=== PATIENT | female | born 1960 | race Caucasian/White ===

== ENCOUNTER 2018-06-27 03:24 | Inpatient (IN) | payer BC ==
[2018-06-27] MEDS ORDERED: KETOROLAC 30 MG/ML 1 ML VIAL IVP STA (03:47)
[2018-06-27] MEDS ORDERED: ONDANSETRON 4 MG/2 ML VIAL IVP STA (03:47)
[2018-06-27] MEDS ORDERED: PANTOPRAZOLE 40 MG/10 ML VIAL IVP STA (03:47)
[2018-06-27] MEDS ORDERED: SODIUM CHLORIDE 0.9% 1,000 ML IV STA ×2 (03:47)
[2018-06-27 03:58] LABS: Basophils % (A) 0 %; Eosinophils # (A) 0.1 k/uL (0-0.7); Eosinophils % (A) 1 %; HCT 43.3 % (34.0-46.0); HGB 14.1 gm/dL (11.4-16.0); Lymphocytes % (A) 14 %; MCH 30.5 pg (25.0-35.0); MCHC 32.5 g/dL (31.0-37.0); MCV 93.8 fL (80.0-100.0); Mean Platelet Volume 9.5; Monocytes # (A) 0.4 k/uL (0-1.0); Monocytes % (A) 5 %; Neutrophils # (A) 5.8 k/uL (1.3-7.7); Neutrophils % (A) 79 %; Platelet Count 173 k/uL (150-450); RBC 4.62 m/uL (3.80-5.40); RDW 13.3 % (11.5-15.5); WBC 7.4 k/uL (3.8-10.6)
[2018-06-27 04:08] LABS: Partial Thromboplastin Time 23.2 sec (22.0-30.0); Prothrombin Time 10.3 sec (9.0-12.0)
[2018-06-27 04:10] LABS: ALT 497 U/L (9-52); AST 575 U/L (14-36); Albumin 4.2 g/dL (3.5-5.0); Alkaline Phosphatase 168 U/L (38-126); Anion Gap 6 mmol/L; Blood Urea Nitrogen 17 mg/dL (7-17); Calcium 9.6 mg/dL (8.4-10.2); Carbon Dioxide 30 mmol/L (22-30); Chloride 106 mmol/L (98-107); Glucose 127 mg/dL (74-99); Potassium 4.8 mmol/L (3.5-5.1); Sodium 142 mmol/L (137-145); Total Bilirubin 1.7 mg/dL (0.2-1.3); Total Protein 7.6 g/dL (6.3-8.2)
[2018-06-27 04:38] LABS: Amylase 2306 U/L (30-110); Lipase >20000 U/L (23-300)
[2018-06-27] MEDS ORDERED: SODIUM CHLORIDE 0.9% 2,000 ML IV ONE (04:40)
[2018-06-27] MEDS ORDERED: HYDROmorphone 1 MG/ML 1 ML SYRINGE IVP STA (04:41)
--- NOTE | 2018-06-27 04:42 | ED ---
Abdominal Pain HPI - General Source: patient, RN notes reviewed, old records reviewed Mode of arrival: ambulatory Limitations: no limitations <Olya Rob - Last Filed: 06/27/18 15:29> <Paola Michelle P - Last Filed: 07/03/18 03:26> - General Chief Complaint: Abdominal Pain Stated Complaint: ABD PAIN Time Seen by Provider: 06/27/18 03:36 - History of Present Illness Initial Comments: 57-year-old female, presents or extremities today which included 8 hours of epigastric abdominal pain. Patient reports that the pain seems to be burning in nature. She reports she's had a history of gas. She stated 2 Gas-X with no relief. She states that the pain radiates towards her back and is burning in nature. She had Fish for lunch, and pizza for dinner. She denies any changes in stools. She did vomit once today. (Olya Rob) - Related Data Previous Rx's Medication Instructions Recorded Docusate [Colace] 100 mg PO BID #20 capsule 06/28/18 HYDROcodone/APAP 7.5-325MG [[place] 1 tab PO Q4H PRN 3 Days #18 tab 06/28/18 7.5-325] Cefuroxime Axetil [Ceftin] 500 mg PO BID 7 Days #14 tab 06/29/18 Allergies Allergy/AdvReac Type Severity Reaction Status Date / Time No Known Allergies Allergy Verified 07/02/18 20:36 Review of Systems ROS Other: All systems not noted in ROS Statement are negative. <Olya Rob - Last Filed: 06/27/18 15:29> ROS Other: All systems not noted in ROS Statement are negative. <Paola Michelle P - Last Filed: 07/03/18 03:26> ROS Statement: Those systems with pertinent positive or pertinent negative responses have been documented in the HPI. Past Medical History Past Medical History: No Reported History History of Any Multi-Drug Resistant Organisms: None Reported Past Surgical History: Section Past Psychological History: No Psychological Hx Reported Smoking Status: Never smoker Past Alcohol Use History: Occasional Past Drug Use History: None Reported - Past Family History Father Additional Family Medical History / Comment(s): Father had heart problems and a pacer. Mother Family Medical History: Hypertension Additional Family Medical History / Comment(s): Mother has had a bowel obstruction. <LianeOlya - Last Filed: 06/27/18 15:29> General Exam Limitations: no limitations General appearance: alert, in no apparent distress Head exam: Present: atraumatic, normocephalic, normal inspection Eye exam: Present: normal appearance, PERRL, EOMI. Absent: scleral icterus, conjunctival injection, periorbital swelling ENT exam: Present: normal exam, mucous membranes moist Neck exam: Present: normal inspection. Absent: tenderness, meningismus, lymphadenopathy Respiratory exam: Present: normal lung sounds bilaterally. Absent: respiratory distress, wheezes, rales, rhonchi, stridor Cardiovascular Exam: Present: regular rate, normal rhythm, normal heart sounds. Absent: systolic murmur, diastolic murmur, rubs, gallop, clicks GI/Abdominal exam: Present: tenderness (Epigastric tenderness), normal bowel sounds. Absent: soft, distended, guarding, rebound, rigid Extremities exam: Present: normal inspection, full ROM, normal capillary refill. Absent: tenderness, pedal edema, joint swelling, calf tenderness Back exam: Present: normal inspection Neurological exam: Present: alert, oriented X3, CN II-XII intact Psychiatric exam: Present: normal affect, normal mood <Olya Rob - Last Filed: 06/27/18 15:29> <Paola Michelle P - Last Filed: 07/03/18 03:26> - General Exam Comments Initial Comments: 49-year-old female. Alert and oriented. Patient appears in moderate discomfort. (Olya Rob) Vital Signs 06/27/18 06/27/18 06/27/18 03:28 05:25 08:15 Temperature 98.0 F Pulse Rate 70 76 Respiratory 20 18 Rate Blood Pressure 169/87 157/84 169/81 O2 Sat by Pulse 97 100 97 Oximetry Medical Decision Making - Lab Data Result diagrams: 06/27/18 03:49 06/27/18 03:49 - Radiology Data Radiology results: report reviewed <Olya Rob - Last Filed: 06/27/18 15:29> - Lab Data Result diagrams: 06/29/18 06:32 06/29/18 06:32 <Paola Michelle P - Last Filed: 07/03/18 03:26> - Medical Decision Making Patient is a 49-year-old female, presents razor today with 8 hours of epigastric abdominal pain leading towards her back. She reports it feels burning in nature. She had an episode of vomiting. She has no major medical history. At this time patient's labwork was reviewed. White blood cell count is normal. She has no fever. She does have significantly elevated liver enzymes. AST is 575 and ALT is 495 respectively. Lipase is greater than 20, 000. Amylase is 2350. Patient was given 3 L bolus, started 200 L an hour. Ultrasound will be completed the gallbladder. Final disposition by Dr. Michelle. (Olya Rob) I personally saw and examined the patient. I reviewed and agree with the mid- level provider findings including all diagnostic interpretations and treatment plans as written unless otherwise stated. I was present for forbes portions of any procedures performed. (Paola Micehlle) - Lab Data Lab Results 06/27/18 06/27/18 06/27/18 Range/Units 03:49 03:49 03:49 WBC 7.4 (3.8-10.6) k/uL RBC 4.62 (3.80-5.40) m/uL Hgb 14.1 (11.4-16.0) gm/dL Hct 43.3 (34.0-46.0) % MCV 93.8 (80.0-100.0) fL MCH 30.5 (25.0-35.0) pg MCHC 32.5 (31.0-37.0) g/dL RDW 13.3 (11.5-15.5) % Plt Count 173 (150-450) k/uL Neutrophils % 79 % Lymphocytes % 14 % Monocytes % 5 % Eosinophils % 1 % Basophils % 0 % Neutrophils # 5.8 (1.3-7.7) k/uL Lymphocytes # 1.0 (1.0-4.8) k/uL Monocytes # 0.4 (0-1.0) k/uL Eosinophils # 0.1 (0-0.7) k/uL Basophils # 0.0 (0-0.2) k/uL PT 10.3 (9.0-12.0) sec INR 1.0 (<1.2) APTT 23.2 (22.0-30.0) sec Sodium 142 (137-145) mmol/L Potassium 4.8 (3.5-5.1) mmol/L Chloride 106 (98-107) mmol/L Carbon Dioxide 30 (22-30) mmol/L Anion Gap 6 mmol/L BUN 17 (7-17) mg/dL Creatinine 0.77 (0.52-1.04) mg/dL Est GFR (CKD-EPI)AfAm >90 (>60 ml/min/1.73 sqM) Est GFR (CKD-EPI)NonAf 85 (>60 ml/min/1.73 sqM) Glucose 127 H (74-99) mg/dL Calcium 9.6 (8.4-10.2) mg/dL Total Bilirubin 1.7 H (0.2-1.3) mg/dL AST 575 H (14-36) U/L ALT 497 H (9-52) U/L Alkaline Phosphatase 168 H (38-126) U/L Total Protein 7.6 (6.3-8.2) g/dL Albumin 4.2 (3.5-5.0) g/dL Amylase 2306 H* (30-110) U/L Lipase >99126 H (23-300) U/L Urine Color Urine Appearance (Clear) Urine pH (5.0-8.0) Ur Specific [place] (1.001-1.035) Urine Protein (Negative) Urine Glucose (UA) (Negative) Urine Ketones (Negative) Urine Blood (Negative) Urine Nitrite (Negative) Urine Bilirubin (Negative) Urine Urobilinogen (<2.0) mg/dL Ur Leukocyte Esterase (Negative) Urine RBC (0-5) /hpf Urine WBC (0-5) /hpf Ur Squamous Epith Cells (0-4) /hpf Urine Mucus (None) /hpf 06/27/18 Range/Units 04:30 WBC (3.8-10.6) k/uL RBC (3.80-5.40) m/uL Hgb (11.4-16.0) gm/dL Hct (34.0-46.0) % MCV (80.0-100.0) fL MCH (25.0-35.0) pg MCHC (31.0-37.0) g/dL RDW (11.5-15.5) % Plt Count (150-450) k/uL Neutrophils % % Lymphocytes % % Monocytes % % Eosinophils % % Basophils % % Neutrophils # (1.3-7.7) k/uL Lymphocytes # (1.0-4.8) k/uL Monocytes # (0-1.0) k/uL Eosinophils # (0-0.7) k/uL Basophils # (0-0.2) k/uL PT (9.0-12.0) sec INR (<1.2) APTT (22.0-30.0) sec Sodium (137-145) mmol/L Potassium (3.5-5.1) mmol/L Chloride (98-107) mmol/L Carbon Dioxide (22-30) mmol/L Anion Gap mmol/L BUN (7-17) mg/dL Creatinine (0.52-1.04) mg/dL Est GFR (CKD-EPI)AfAm (>60 ml/min/1.73 sqM) Est GFR (CKD-EPI)NonAf (>60 ml/min/1.73 sqM) Glucose (74-99) mg/dL Calcium (8.4-10.2) mg/dL Total Bilirubin (0.2-1.3) mg/dL AST (14-36) U/L ALT (9-52) U/L Alkaline Phosphatase (38-126) U/L Total Protein (6.3-8.2) g/dL Albumin (3.5-5.0) g/dL Amylase (30-110) U/L Lipase (23-300) U/L Urine Color Yellow Urine Appearance Cloudy H (Clear) Urine pH 5.0 (5.0-8.0) Ur Specific [place] 1.007 (1.001-1.035) Urine Protein Negative (Negative) Urine Glucose (UA) Negative (Negative) Urine Ketones Negative (Negative) Urine Blood Negative (Negative) Urine Nitrite Negative (Negative) Urine Bilirubin Negative (Negative) Urine Urobilinogen <2.0 (<2.0) mg/dL Ur Leukocyte Esterase Large H (Negative) Urine RBC 8 H (0-5) /hpf Urine WBC 61 H (0-5) /hpf Ur Squamous Epith Cells 5 H (0-4) /hpf Urine Mucus Rare H (None) /hpf - Radiology Data US report shows contracted gallbladder, likley stone. No other evidence of acute cholecystiits. (Olya Rob) Disposition Is patient prescribed a controlled substance at d/c from ED?: No Time of Disposition: 04:50 <Olya Rob - Last Filed: 06/27/18 15:29> <Paola Michelle - Last Filed: 07/03/18 03:26> Clinical Impression: Pancreatitis due to biliary obstruction Disposition: ADMITTED IP TO THIS HOSP Condition: Stable
[2018-06-27] MEDS ORDERED: NALOXONE 0.4 MG/ML 1 ML VIAL IV PRN (04:51)
[2018-06-27] MEDS: ONDANSETRON 4 MG/2 ML VIAL IVP PRN ×4 (05:01→21:03)
[2018-06-27 05:25] LABS: Appearance,Urine Cloudy (Clear); Bilirubin,Urine Negative (Negative); Blood,Urine Negative (Negative); Color,Urine Yellow; Glucose,Urine (UA) Negative (Negative); Ketones,Urine Negative (Negative); Leukocyte Esterase,Urine Large (Negative); Mucus,Urine Rare /hpf; Nitrite,Urine Negative (Negative); Protein,Urine Negative (Negative); RBC,Urine 8 /hpf (0-5); Specific Gravity,Urine 1.007 (1.001-1.035); Squamous Epithelial Cell,Urine 5 /hpf (0-4); Urobilinogen,Urine <2.0 mg/dL (<2.0); WBC,Urine 61 /hpf (0-5)
[2018-06-27] MEDS: SODIUM CHLORIDE 0.9% 1,000 ML IV SCH ×3 (06:45→16:44)
--- NOTE | 2018-06-27 07:47 | US ---
EXAMINATION TYPE: US gallbladder DATE OF EXAM: 06/27/2018 COMPARISON: NONE CLINICAL HISTORY: Pain. RUQ pain EXAM MEASUREMENTS: Liver Length: 19.4 cm Gallbladder Wall: 0.3 cm CBD: 0.5 cm Right Kidney: 9.7 x 4.4 x 5.6 cm Pancreas: Obscured by bowel gas Liver: Increased attenuation hypoechoic area left lobe 1.5 x 3.2cm not seen well in transverse. Gallbladder: DALIA sign Evidence for sonographic Boyd's sign: No CBD: wnl Right Kidney: wnl Visualized portion of pancreas shows no worrisome mass or ductal dilatation, significant portions of the head and tail are scattered by overlying bowel gas. Visualized liver is heterogeneously hyperecho ic making evaluation for focal masses suboptimal. No acute hepatic ductal dilatation is seen. Technol ogist jama oval 3.2 x 1.5 cm lesion. No surrounding ascites is seen. Limited images right kidney jian w vertebral gross hydronephrosis. The level of gallbladder fossa there is curvilinear hyperechoic sha dowing structure could reflect stone filled contracted gallbladder. No surrounding fluid is seen. Son ographic Boyd's sign is negative. IMPRESSION: Suboptimal study, suspect stone filled contracted gallbladder without secondary ultrasoun d evidence for acute cholecystitis. I patient with right upper quadrant pain it cannot BE entirely ex cluded, consider HIDA scan follow-up.
[2018-06-27] MEDS: HYDROmorphone 1 MG/ML 1 ML SYRINGE IVP PRN ×3 (08:35→17:03)
[2018-06-27] MEDS: KETOROLAC 30 MG/ML 1 ML VIAL IVP PRN ×2 (09:21→15:50)
[2018-06-27] MEDS: PANTOPRAZOLE 40 MG/10 ML VIAL IV SCH (10:21)
--- NOTE | 2018-06-27 13:23 | P.HPIM ---
History of Present Illness H&P Date: 06/27/18 Chief Complaint: Abdominal pain This is a 57-year-old female, patient of [facility]. She has no significant past medical history. Denies any previous history of pancreatitis. She presents to the hospital with complaints of epigastric abdominal pain that radiates to the back. Symptoms started around 7:00 last night. Initially she thought they were gas pains and tried Gas-X with no relief. Her pain continued to worsen therefore she came into the ER for further evaluation and treatment. She describes the pain is a burning sensation mostly in the epigastric area and across the upper abdomen and into the back. She had one episode of vomiting. Reports regular bowel movements. Denies any fever or chills or sweats. Denies any chest pain or shortness of breath. Denies any burning with urination. Gallbladder ultrasound shows suspect [place] contracted gallbladder. Total bili elevated at 1.7 AST 575 ALT 497 alk phos 168 amylase 2306 lipase greater than 20,000. Patient admitted to the hospital for an acute pancreatitis. Started on IV fluids pain medication. And made nothing by mouth. Surgical consult has been placed. She also has possibly a UTI will be started on Rocephin. She is complaining of dry heaves and has been started on IV Zofran and Protonix. Patient denies any daily alcohol use. She reports her last alcoholic beverage was about 3 weeks ago. And she drinks occasionally Review of Systems Please refer to HPI otherwise unremarkable Past Medical History Past Medical History: No Reported History History of Any Multi-Drug Resistant Organisms: None Reported Past Surgical History: Section Additional Past Surgical History / Comment(s): Colonoscopy-normal Past Anesthesia/Blood Transfusion Reactions: No Reported Reaction Smoking Status: Never smoker - Past Family History Father Additional Family Medical History / Comment(s): Father had heart problems and a pacer. Mother Family Medical History: Hypertension Additional Family Medical History / Comment(s): Mother has had a bowel obstruction. Medications and Allergies Home Medications Medication Instructions Recorded Confirmed Type No Known Home Medications 06/27/18 06/27/18 History Allergies Allergy/AdvReac Type Severity Reaction Status Date / Time No Known Allergies Allergy Verified 06/27/18 07:33 Physical Exam Vitals: Vital Signs Temp Pulse Pulse Resp BP BP Pulse Ox 06/27/18 11:06 97.8 F 58 L 18 153/78 96 06/27/18 08:15 18 169/81 97 06/27/18 05:25 76 157/84 100 06/27/18 03:28 98.0 F 70 20 169/87 97 Intake and Output 06/26/18 06/27/18 06/27/18 22:59 06:59 14:59 Intake Total 1000 Balance 1000 Intake: Amount of Fluid Infused ( 1000 ml) Other: Weight 108.862 kg Head normocephalic Neck supple Lungs clear to auscultation bilaterally no wheezing or crackles Heart regular rate and rhythm S1-S2, no rub or gallop Abdomen is soft epigastric tenderness nondistended positive bowel sounds no hepatosplenomegaly Extremities no edema Neuro alert and orientated to 3 Results CBC & Chem 7: 06/27/18 03:49 06/27/18 03:49 Labs: Abnormal Lab Results - Last 24 Hours (Table) 06/27/18 06/27/18 Range/Units 03:49 04:30 Glucose 127 H (74-99) mg/dL Total Bilirubin 1.7 H (0.2-1.3) mg/dL AST 575 H (14-36) U/L ALT 497 H (9-52) U/L Alkaline Phosphatase 168 H (38-126) U/L Amylase 2306 H* (30-110) U/L Lipase >29783 H (23-300) U/L Urine Appearance Cloudy H (Clear) Ur Leukocyte Esterase Large H (Negative) Urine RBC 8 H (0-5) /hpf Urine WBC 61 H (0-5) /hpf Ur Squamous Epith Cells 5 H (0-4) /hpf Urine Mucus Rare H (None) /hpf Thrombosis Risk Factor Assmnt - Choose All That Apply Any of the Below Risk Factors Present?: Yes Each Factor Represents 1 point: Age 41-60 years, Obesity (BMI >25) Other Risk Factors: No Other congenital or acquired thrombophilia - If yes, enter type in comment: No Thrombosis Risk Factor Assessment Total Risk Factor Score: 2 Thrombosis Risk Factor Assessment Level: Low Risk Assessment and Plan Assessment: 1. Acute pancreatitis: Likely gallstone pancreatitis. Abdominal ultrasound shows a suboptimal study, suspect stone filled contracted gallbladder. Patient does have elevated LFTs and amylase and lipase. Continue with IV fluid hydration, IV Dilaudid for pain control and patient is currently nothing by mouth for bowel rest. Surgery has been consulted. Continue to monitor LFTs and amylase and lipase. Continue Zofran as needed with IV Protonix for nausea and vomiting 2. Possible UTI: Check urine culture. Start IV Rocephin 1 g daily GI prophylaxis Protonix and DVT prophylaxis Lovenox Time with Patient: Greater than 30 (Greater than 50% of the total time spent in counseling and coordination of care.I performed an examination of the patient and discussed their management with the physician Jointer Machine. I have reviewed the Physician Jointer Machine's notes and agree with the documented findings and plan of care)
--- NOTE | 2018-06-27 13:58 | P.GSCN ---
History of Present Illness Consult date: 06/27/18 Reason for Consult: Gallstone pancreatitis History of present illness: This is a 57-year-old female who was admitted to the hospital complaints of abdominal pain. Patient had complaints of epigastric pain. She is worked up and found have evidence of gallstone hepatitis. Her ultrasound shows evidence of cholelithiasis. He states her pain is slightly improved. Past Medical History Past Medical History: No Reported History History of Any Multi-Drug Resistant Organisms: None Reported Past Surgical History: Section Additional Past Surgical History / Comment(s): Colonoscopy-normal Past Anesthesia/Blood Transfusion Reactions: No Reported Reaction Smoking Status: Never smoker - Past Family History Father Additional Family Medical History / Comment(s): Father had heart problems and a pacer. Mother Family Medical History: Hypertension Additional Family Medical History / Comment(s): Mother has had a bowel obstruction. Medications and Allergies Home Medications Medication Instructions Recorded Confirmed Type No Known Home Medications 06/27/18 06/27/18 History Allergies Allergy/AdvReac Type Severity Reaction Status Date / Time No Known Allergies Allergy Verified 06/27/18 07:33 Surgical - Exam Vital Signs Temp Pulse Resp BP Pulse Ox 98.0 F 70 20 169/87 97 06/27/18 03:28 06/27/18 03:28 06/27/18 03:28 06/27/18 03:28 06/27/18 03:28 - General well developed, well nourished, no distress - Eyes PERRL - ENT normal pinna - Neck no masses - Respiratory normal expansion - Cardiovascular Rhythm: regular - Abdomen Mild epigastric tenderness Abdomen: soft Results - Labs 06/27/18 03:49 06/27/18 03:49 Abnormal Lab Results - Last 24 Hours (Table) 06/27/18 06/27/18 Range/Units 03:49 04:30 Glucose 127 H (74-99) mg/dL Total Bilirubin 1.7 H (0.2-1.3) mg/dL AST 575 H (14-36) U/L ALT 497 H (9-52) U/L Alkaline Phosphatase 168 H (38-126) U/L Amylase 2306 H* (30-110) U/L Lipase >80638 H (23-300) U/L Urine Appearance Cloudy H (Clear) Ur Leukocyte Esterase Large H (Negative) Urine RBC 8 H (0-5) /hpf Urine WBC 61 H (0-5) /hpf Ur Squamous Epith Cells 5 H (0-4) /hpf Urine Mucus Rare H (None) /hpf Diabetes panel 06/27/18 Range/Units 03:49 Sodium 142 (137-145) mmol/L Potassium 4.8 (3.5-5.1) mmol/L Chloride 106 (98-107) mmol/L Carbon Dioxide 30 (22-30) mmol/L BUN 17 (7-17) mg/dL Creatinine 0.77 (0.52-1.04) mg/dL Glucose 127 H (74-99) mg/dL Calcium 9.6 (8.4-10.2) mg/dL AST 575 H (14-36) U/L ALT 497 H (9-52) U/L Alkaline Phosphatase 168 H (38-126) U/L Total Protein 7.6 (6.3-8.2) g/dL Albumin 4.2 (3.5-5.0) g/dL Calcium panel 06/27/18 Range/Units 03:49 Calcium 9.6 (8.4-10.2) mg/dL Albumin 4.2 (3.5-5.0) g/dL Pituitary panel 06/27/18 Range/Units 03:49 Sodium 142 (137-145) mmol/L Potassium 4.8 (3.5-5.1) mmol/L Chloride 106 (98-107) mmol/L Carbon Dioxide 30 (22-30) mmol/L BUN 17 (7-17) mg/dL Creatinine 0.77 (0.52-1.04) mg/dL Glucose 127 H (74-99) mg/dL Calcium 9.6 (8.4-10.2) mg/dL Adrenal panel 06/27/18 Range/Units 03:49 Sodium 142 (137-145) mmol/L Potassium 4.8 (3.5-5.1) mmol/L Chloride 106 (98-107) mmol/L Carbon Dioxide 30 (22-30) mmol/L BUN 17 (7-17) mg/dL Creatinine 0.77 (0.52-1.04) mg/dL Glucose 127 H (74-99) mg/dL Calcium 9.6 (8.4-10.2) mg/dL Total Bilirubin 1.7 H (0.2-1.3) mg/dL AST 575 H (14-36) U/L ALT 497 H (9-52) U/L Alkaline Phosphatase 168 H (38-126) U/L Total Protein 7.6 (6.3-8.2) g/dL Albumin 4.2 (3.5-5.0) g/dL - Imaging US - abdomen: report reviewed (Stone filled contracted gallbladder) Assessment and Plan Assessment: Gallstone patient has. Patient will have her labs rechecked in the a.m. If she shows improvement he may undergo laparoscopic ostectomy in the a.m.
[2018-06-28] MEDS: SODIUM CHLORIDE 0.9% 1,000 ML IV SCH ×6 (00:30→22:16)
[2018-06-28 07:56] LABS: Basophils % (A) 0 %; Eosinophils # (A) 0.1 k/uL (0-0.7); Eosinophils % (A) 1 %; HCT 36.6 % (34.0-46.0); HGB 11.5 gm/dL (11.4-16.0); Lymphocytes # (A) 1.3 k/uL (1.0-4.8); Lymphocytes % (A) 25 %; MCH 29.9 pg (25.0-35.0); MCHC 31.5 g/dL (31.0-37.0); Mean Platelet Volume 8.1; Monocytes # (A) 0.2 k/uL (0-1.0); Monocytes % (A) 4 %; Neutrophils # (A) 3.6 k/uL (1.3-7.7); Neutrophils % (A) 69 %; Platelet Count 170 k/uL (150-450); RBC 3.85 m/uL (3.80-5.40); RDW 13.5 % (11.5-15.5); WBC 5.2 k/uL (3.8-10.6)
[2018-06-28 08:07] LABS: ALT 400 U/L (9-52); AST 192 U/L (14-36); Albumin 2.9 g/dL (3.5-5.0); Alkaline Phosphatase 138 U/L (38-126); Anion Gap 5 mmol/L; Blood Urea Nitrogen 13 mg/dL (7-17); Calcium 8.1 mg/dL (8.4-10.2); Carbon Dioxide 24 mmol/L (22-30); Chloride 113 mmol/L (98-107); Glucose 93 mg/dL (74-99); Potassium 3.7 mmol/L (3.5-5.1); Sodium 142 mmol/L (137-145); Total Bilirubin 0.8 mg/dL (0.2-1.3); Total Protein 5.7 g/dL (6.3-8.2)
[2018-06-28 08:16] LABS: Amylase 365 U/L (30-110)
[2018-06-28 08:17] LABS: Lipase 2895 U/L (23-300)
[2018-06-28] MEDS ORDERED: IV FLUID CONTINUATION 1,000 ML IV ONE (08:27)
[2018-06-28] MEDS: ONDANSETRON 4 MG/2 ML VIAL IVP PRN (08:32)
[2018-06-28] MEDS ORDERED: ENOXAPARIN 40 MG/0.4 ML SYRINGE SQ SCH (09:00)
--- NOTE | 2018-06-28 09:03 | P.PN ---
Progress Note - Text Progress Note Date: 06/28/18 The patient's liver function tests and amylase and lipase have decreased today. She will undergo laparoscopic cholecystectomy.
[2018-06-28] MEDS ORDERED: HEPARIN SODIUM,PORCINE 5,000 UNIT/ML 1 ML VIAL SQ ONE (09:15)
[2018-06-28] MEDS ORDERED: SUCCINYLCHOLINE CHLORIDE 100 MG/5 ML SYR IV ONE (09:36)
[2018-06-28] MEDS ORDERED: KETOROLAC 30 MG/ML 1 ML VIAL ONE (09:36)
[2018-06-28] MEDS ORDERED: MORPHINE SULFATE 10 MG/ML SYRINGE ONE (09:36)
[2018-06-28] MEDS ORDERED: GLYCOPYRROLATE 0.2 MG/ML 2 ML VIAL ONE (09:36)
[2018-06-28] MEDS ORDERED: ROCURONIUM BROMIDE 10 MG/ML 10 ML VIAL IV ONE (09:36)
[2018-06-28] MEDS ORDERED: PROPOFOL 10 MG/ML 20 ML VIAL IV ONE (09:36)
[2018-06-28] MEDS ORDERED: fentaNYL (PF) 50 MCG/ML 2 ML AMP ONE (09:36)
[2018-06-28] MEDS ORDERED: LIDOCAINE 1% INJ 10MG/ML (20 ML MDV) ONE (09:36)
[2018-06-28] MEDS ORDERED: MIDAZOLAM 2 MG/2 ML VIAL ONE (09:36)
[2018-06-28] MEDS ORDERED: NEOSTIGMINE 1 MG/ML 10 ML VIAL ONE (09:36)
[2018-06-28] MEDS ORDERED: BUPIVACAIN-EPI 0.25%-1:200,000 30 ML VIAL SQ ONE ×2 (10:03→10:52)
[2018-06-28] MEDS: PANTOPRAZOLE 40 MG/10 ML VIAL IV SCH (10:06)
[2018-06-28] MEDS ORDERED: LACTATED RINGERS 1,000 ML IV ONE ×2 (10:07→11:11)
[2018-06-28] MEDS ORDERED: ONDANSETRON 4 MG/2 ML VIAL IVP ONE (11:10)
[2018-06-28] MEDS ORDERED: NALOXONE 0.4 MG/ML 1 ML VIAL IV PRN (11:11)
[2018-06-28] MEDS ORDERED: HYDROmorphone 0.5 MG/0.5 ML SYRINGE IVP PRN (11:11)
[2018-06-28] MEDS ORDERED: HYDROcodone/APAP 5-325MG 1 EACH TAB PO PRN ×2 (11:11)
--- NOTE | 2018-06-28 11:17 | P.OP ---
Date of Procedure: 06/28/18 Preoperative Diagnosis: Acute cholecystitis Gallstone pancreatitis Postoperative Diagnosis: Acute cholecystitis Gallstone pancreatitis Procedure(s) Performed: Laparoscopic cholecystectomy Anesthesia: HUGH Surgeon: Femi Moreira Estimated Blood Loss (ml): 10 Pathology: other (Gallbladder) Condition: stable Disposition: PACU Operative Findings: Severely inflamed gallbladder with cholelithiasis Description of Procedure: The patient was placed on the operating table. The patient received a general endotracheal tube anesthesia. The patients abdomen was prepped and draped in the usual sterile fashion. Through an infraumbilical stab incision, the fascia of the anterior abdominal wall was grasped with a pair of Kochers and then the Veress needle was placed in the peritoneal cavity. Position of the Veress needle was confirmed with positive drop test. The abdomen was then insufflated. After adequate insufflation, the 10 mm trocar was placed in the peritoneal cavity. Following this the laparoscope was placed in the peritoneal cavity. The patient was placed in the head-up, right side up position and then a 5 mm trocar was placed in the right lateral and right subcostal position under direct visualization. A 8 mm trocar was placed in the epigastric position. The gallbladder was quite inflamed. The gallbladder was grasped in the fundus and infundibulum. Traction on the gallbladder was placed in the lateral and the cephalad positions. The triangle of Calot was visualized.. The cystic duct was bluntly dissected until the union of the cystic duct and common bile duct was seen. The cystic duct was then ligated using a 2-0 Ethibond suture in the timeout device.. A PDS Endoloop was then placed around the cystic duct stump. The cystic artery divided and sealed with the Harmonic scissors. The gallbladder was then removed from the liver bed using Harmonic scissors. The gallbladder was then extracted through the epigastric port site. Operative field was checked for any bleeding spots and Harmonic scissors was used to coagulate the liver bed. The abdomen was irrigated. The trocars were removed. The skin was closed using interrupted 3-0 Vicryl suture. Dermabond dressing were applied. The patient tolerated the procedure well.
[2018-06-28] MEDS ORDERED: METOCLOPRAMIDE 5 MG/ML 2 ML VIAL IVP ONE (11:26)
[2018-06-28] MEDS ORDERED: HYDROmorphone 1 MG/ML 1 ML SYRINGE IVP ONE (11:35)
--- NOTE | 2018-06-28 13:38 | P.PN ---
Subjective Progress Note Date: 06/28/18 This is a 57-year-old female, patient of [facility]. She has no significant past medical history. Denies any previous history of pancreatitis. She presents to the hospital with complaints of epigastric abdominal pain that radiates to the back. Symptoms started around 7:00 last night. Initially she thought they were gas pains and tried Gas-X with no relief. Her pain continued to worsen therefore she came into the ER for further evaluation and treatment. She describes the pain is a burning sensation mostly in the epigastric area and across the upper abdomen and into the back. She had one episode of vomiting. Reports regular bowel movements. Denies any fever or chills or sweats. Denies any chest pain or shortness of breath. Denies any burning with urination. Gallbladder ultrasound shows suspect [place] contracted gallbladder. Total bili elevated at 1.7 AST 575 ALT 497 alk phos 168 amylase 2306 lipase greater than 20,000. Patient admitted to the hospital for an acute pancreatitis. Started on IV fluids pain medication. And made nothing by mouth. Surgical consult has been placed. She also has possibly a UTI will be started on Rocephin. She is complaining of dry heaves and has been started on IV Zofran and Protonix. Patient denies any daily alcohol use. She reports her last alcoholic beverage was about 3 weeks ago. And she drinks occasionally On 06/28/2018 patient is currently status post laproscopic cholecystectomy with Dr. Moreira today. Patient is currently resting in bed with no complaints. Patient states abdominal pain is completely subsided. Patient denies nausea vomiting or diarrhea. Patient denies any chest pain or shortness breath. Per patient planning to be DC'd tomorrow Objective - Vital Signs Vital signs: Vital Signs Temp 97.9 F 06/28/18 12:57 Pulse 86 06/28/18 12:57 Resp 18 06/28/18 12:57 BP 156/75 06/28/18 12:57 Pulse Ox 95 06/28/18 12:57 Intake & Output 06/27/18 06/28/18 06/28/18 18:59 06:59 18:59 Intake Total 6360 506 3336 Output Total 50 Balance 0569 425 6260 Intake: IV 1300 Amount of Fluid Infused ( 1000 ml) Intake, IV Titration 600 Amount Sodium Chloride 0.9% 1, 600 000 ml @ 200 mls/hr IV . Q5H [facility] Rx#:[id number] Oral 590 Output: Estimated Blood Loss 50 Other: Voiding Method Toilet # Voids 2 - Exam Head normocephalic Neck supple Lungs clear to auscultation bilaterally no wheezing or crackles Heart regular rate and rhythm S1-S2, no rub or gallop Abdomen is soft nontender nondistended positive bowel sounds no hepatosplenomegaly Extremities no edema Neuro alert and orientated to 3 - Labs CBC & Chem 7: 06/28/18 07:13 06/28/18 07:13 Labs: Abnormal Lab Results - Last 24 Hours (Table) 06/28/18 Range/Units 07:13 Chloride 113 H (98-107) mmol/L Calcium 8.1 L (8.4-10.2) mg/dL AST 192 H (14-36) U/L ALT 400 H (9-52) U/L Alkaline Phosphatase 138 H (38-126) U/L Total Protein 5.7 L (6.3-8.2) g/dL Albumin 2.9 L (3.5-5.0) g/dL Amylase 365 H* (30-110) U/L Lipase 2895 H (23-300) U/L Microbiology - Last 24 Hours (Table) 06/27/18 20:10 Urine Culture - Preliminary Urine,Voided Assessment and Plan Assessment: 1. Acute pancreatitis: Likely gallstone pancreatitis. Abdominal ultrasound shows a suboptimal study, suspect stone filled contracted gallbladder. Patient does have elevated LFTs and amylase and lipase. Continue with IV fluid hydration, IV Dilaudid for pain control and patient is currently nothing by mouth for bowel rest. Surgery has been consulted. Continue to monitor LFTs and amylase and lipase. Continue Zofran as needed with IV Protonix for nausea and vomiting. Patient currently status post lap herbert with Dr. Moreira. 2. Possible UTI: Check urine culture. Start IV Rocephin 1 g daily GI prophylaxis Protonix and DVT prophylaxis Lovenox Anticipate discharge in the next 24-48 hours I performed an examination of the patient and discussed their management with the Nurse Practitioner. I have reviewed the Nurse Practitioner's notes and agree with the documented findings and plan of care
[2018-06-28] MEDS: KETOROLAC 30 MG/ML 1 ML VIAL IVP PRN (21:08)
[2018-06-28 23:12] VITALS: RESP 16
[2018-06-29] MEDS: SODIUM CHLORIDE 0.9% 1,000 ML IV SCH (04:55)
[2018-06-29 05:43] VITALS: BP 167/77; PULSE 81; TEMP 98.5
[2018-06-29 07:12] LABS: Basophils % (A) 0 %; Eosinophils # (A) 0.1 k/uL (0-0.7); Eosinophils % (A) 1 %; HCT 35.6 % (34.0-46.0); HGB 11.4 gm/dL (11.4-16.0); Lymphocytes # (A) 1.1 k/uL (1.0-4.8); Lymphocytes % (A) 17 %; MCH 30.6 pg (25.0-35.0); MCV 95.6 fL (80.0-100.0); Mean Platelet Volume 7.7; Monocytes # (A) 0.3 k/uL (0-1.0); Monocytes % (A) 5 %; Neutrophils % (A) 76 %; Platelet Count 175 k/uL (150-450); RBC 3.73 m/uL (3.80-5.40); RDW 13.6 % (11.5-15.5); WBC 6.6 k/uL (3.8-10.6)
[2018-06-29 07:17] LABS: ALT 282 U/L (9-52); AST 80 U/L (14-36); Albumin 3.1 g/dL (3.5-5.0); Alkaline Phosphatase 119 U/L (38-126); Amylase 71 U/L (30-110); Anion Gap 8 mmol/L; Blood Urea Nitrogen 8 mg/dL (7-17); Calcium 8.4 mg/dL (8.4-10.2); Carbon Dioxide 25 mmol/L (22-30); Chloride 108 mmol/L (98-107); Glucose 110 mg/dL (74-99); Lipase 488 U/L (23-300); Potassium 3.5 mmol/L (3.5-5.1); Sodium 141 mmol/L (137-145); Total Bilirubin 0.8 mg/dL (0.2-1.3)
[2018-06-29] MEDS ORDERED: ENOXAPARIN 40 MG/0.4 ML SYRINGE SQ SCH (09:00)
[2018-06-29] MEDS: PANTOPRAZOLE 40 MG/10 ML VIAL IV SCH (10:00)
[2018-06-29] MEDS: ONDANSETRON 4 MG/2 ML VIAL IVP PRN (10:06)
--- NOTE | 2018-06-29 11:09 | P.DS ---
Providers Date of admission: 06/27/18 08:21 Expected date of discharge: 06/29/18 Attending physician: Maikel Medellin Consults: 06/27/18 08:21 Consult Physician Stat Consulting Provider: Femi Moreira Consult Reason/Comments: acute pancreatitis Do you want consulting provider notified?: Already Contacted Primary care physician: Ashley Beltran [facility] Course: Discharge diagnosis 1. Acute pancreatitis: Likely gallstone pancreatitis. Abdominal ultrasound shows a suboptimal study, suspect stone filled contracted gallbladder. Patient does have elevated LFTs and amylase and lipase. Continue with IV fluid hydration, IV Dilaudid for pain control and patient is currently nothing by mouth for bowel rest. Surgery has been consulted. Continue to monitor LFTs and amylase and lipase. Continue Zofran as needed with IV Protonix for nausea and vomiting. Patient currently status post lap herbert with Dr. Moreira. AST improving 80, ALT 282 amylase within normal limits at 71 and lipase trending down to 488. Patient has been cleared for discharge. Patient to follow-up closely with PCP services. Repeat CMP will be ordered for 4 days 2. Possible UTI: Check urine culture. Start IV Rocephin 1 g daily. Patient will be DC'd on Ceftin 500 twice a day for 7 days. Hospital course This is a 57-year-old female, patient of [facility]. She has no significant past medical history. Denies any previous history of pancreatitis. She presents to the hospital with complaints of epigastric abdominal pain that radiates to the back. Symptoms started around 7:00 last night. Initially she thought they were gas pains and tried Gas-X with no relief. Her pain continued to worsen therefore she came into the ER for further evaluation and treatment. She describes the pain is a burning sensation mostly in the epigastric area and across the upper abdomen and into the back. She had one episode of vomiting. Reports regular bowel movements. Denies any fever or chills or sweats. Denies any chest pain or shortness of breath. Denies any burning with urination. Gallbladder ultrasound shows suspect [place] contracted gallbladder. Total bili elevated at 1.7 AST 575 ALT 497 alk phos 168 amylase 2306 lipase greater than 20,000. Patient admitted to the hospital for an acute pancreatitis. Started on IV fluids pain medication. And made nothing by mouth. Surgical consult has been placed. She also has possibly a UTI will be started on Rocephin. She is complaining of dry heaves and has been started on IV Zofran and Protonix. Patient denies any daily alcohol use. She reports her last alcoholic beverage was about 3 weeks ago. And she drinks occasionally On 06/28/2018 patient is currently status post laproscopic cholecystectomy with Dr. Moreira today. Patient is currently resting in bed with no complaints. Patient states abdominal pain is completely subsided. Patient denies nausea vomiting or diarrhea. Patient denies any chest pain or shortness breath. Per patient planning to be DC'd tomorrow. On 06/29/2018 patient is alert and oriented 3. Patient is currently postop day 1 s/p lap herbert with Dr. Moreira. Patient has been ambulating. Patient has been tolerating diet. Patient denies chest pain or shortness breath. Patient denies nausea vomiting or diarrhea. Patient will be DC'd home on Ceftin 500 twice a day for 7 more days for UTI. Patient to follow-up closely with PCP and surgical services. Repeat CMP has been ordered for 3 days I performed an examination of the patient and discussed their management with the Nurse Practitioner. I have reviewed the Nurse Practitioner's notes and agree with the documented findings and plan of care Patient Condition at Discharge: Stable Plan - Discharge Summary Discharge Rx Participant: No New Discharge Prescriptions: New Docusate [Colace] 100 mg PO BID #20 capsule HYDROcodone/APAP 7.5-325MG [[place] 7.5-325] 1 tab PO Q4H PRN 3 Days #18 tab PRN Reason: Pain Cefuroxime Axetil [Ceftin] 500 mg PO BID 7 Days #14 tab Discharge Medication List Docusate [Colace] 100 mg PO BID #20 capsule 06/28/18 [Rx] HYDROcodone/APAP 7.5-325MG [[place] 7.5-325] 1 tab PO Q4H PRN 3 Days #18 tab 06/28 [Rx] Cefuroxime Axetil [Ceftin] 500 mg PO BID 7 Days #14 tab 06/29/18 [Rx] Follow up Appointment(s)/Referral(s): Ashley Beltran DO [Primary Care Provider] - 1-2 days Femi Moreira MD [STAFF PHYSICIAN] - 1 Week Ambulatory/Diagnostic Orders: Comprehensive Metabolic Panel [LAB.AMB] Time Frame: 5 Days, Location: None Selected Activity/Diet/Wound Care/Special Instructions: Activity as tolerated Diet regular low sodium Discharge Disposition: HOME SELF-CARE
--- NOTE | 2018-06-29 11:38 | P.PN ---
Subjective Progress Note Date: 06/29/18 Principal diagnosis: Cholecystitis Patient doing well today. Pain improved. She is anxious to go home. She is tolerating her diet. Objective - Vital Signs Vital signs: Vital Signs Temp 98.5 F 06/29/18 05:00 Pulse 81 06/29/18 08:35 Resp 16 06/29/18 08:35 BP 167/77 06/29/18 05:00 Pulse Ox 91 L 06/29/18 05:00 Intake & Output 06/28/18 06/29/18 06/29/18 18:59 06:59 18:59 Intake Total 1300 1125 Output Total 50 Balance 1250 1125 Intake: IV 1300 Intake, IV Titration 1125 Amount Lactated Ringers 1,000 ml 225 @ 125 mls/hr IV .Q8H [facility] Rx#:[id number] Sodium Chloride 0.9% 1, 900 000 ml @ 200 mls/hr IV . Q5H [facility] Rx#:[id number] Output: Estimated Blood Loss 50 Other: Voiding Method Toilet Toilet Toilet # Voids 2 - Exam Abdomen: Soft, mild distention, mild tenderness, incisions clean and dry - Labs CBC & Chem 7: 06/29/18 06:32 06/29/18 06:32 Labs: Abnormal Lab Results - Last 24 Hours (Table) 06/29/18 06/29/18 Range/Units 06:32 06:32 RBC 3.73 L (3.80-5.40) m/uL Chloride 108 H (98-107) mmol/L Creatinine 0.49 L (0.52-1.04) mg/dL Glucose 110 H (74-99) mg/dL AST 80 H (14-36) U/L ALT 282 H (9-52) U/L Total Protein 6.0 L (6.3-8.2) g/dL Albumin 3.1 L (3.5-5.0) g/dL Lipase 488 H (23-300) U/L Microbiology - Last 24 Hours (Table) 06/27/18 20:10 Urine Culture - Preliminary Urine,Voided Assessment and Plan Plan: Continue diet as tolerated. Ambulate. Probable discharge today.
== END 2018-06-29 12:12 | disposition home or self-care (01) | DRG 418 ==
LOC: EC 03:24 → 3NMEDONC 08:21
PROVIDERS: ADMIT Internal Medicine; ATTEND Internal Medicine
PROC: 0FT44ZZ Resection of Gallbladder, Percutaneous Endoscopic Approach (ICD-10-PCS; principal; 2018-06-28 09:45)
DX: K85.10 Biliary acute pancreatitis without necrosis or infection (principal); K80.01 Calculus of gallbladder with acute cholecystitis with obstruction; N39.0 Urinary tract infection, site not specified; Z82.49 Family history of ischemic heart disease and other diseases of the circulatory system
CPT/HCPCS: 36415; 76705; 80053; 81001; 82150; 83690; 85025; 85610; 85730; 87086; 88304; 96361; 96374; 96375; 96376; 99285

== ENCOUNTER 2018-07-02 15:59 | Inpatient (IN) | payer BC ==
[2018-07-02] MEDS ORDERED: SODIUM CHLORIDE 0.9% 1,000 ML IV STA (17:22)
[2018-07-02] MEDS ORDERED: ONDANSETRON 4 MG/2 ML VIAL IVP STA (17:22)
[2018-07-02] MEDS ORDERED: MORPHINE SULFATE 4 MG/ML SYRINGE IV STA (17:22)
[2018-07-02 18:09] LABS: Basophils % (A) 0 %; Eosinophils # (A) 0.1 k/uL (0-0.7); Eosinophils % (A) 1 %; HCT 38.4 % (34.0-46.0); HGB 12.5 gm/dL (11.4-16.0); Lymphocytes # (A) 0.5 k/uL (1.0-4.8); Lymphocytes % (A) 5 %; MCH 30.7 pg (25.0-35.0); MCHC 32.7 g/dL (31.0-37.0); MCV 93.9 fL (80.0-100.0); Mean Platelet Volume 8.4; Monocytes # (A) 0.5 k/uL (0-1.0); Monocytes % (A) 5 %; Neutrophils # (A) 8.4 k/uL (1.3-7.7); Neutrophils % (A) 89 %; Platelet Count 241 k/uL (150-450); RBC 4.08 m/uL (3.80-5.40); RDW 13.6 % (11.5-15.5); WBC 9.5 k/uL (3.8-10.6)
[2018-07-02 18:15] LABS: Appearance,Urine Cloudy (Clear); Bilirubin,Urine 1+ (Negative); Blood,Urine Trace (Negative); Color,Urine Dark Yellow; Glucose,Urine (UA) Trace (Negative); Ketones,Urine 2+ (Negative); Leukocyte Esterase,Urine Trace (Negative); Mucus,Urine Many /hpf; Nitrite,Urine Negative (Negative); Protein,Urine 1+ (Negative); RBC,Urine 5 /hpf (0-5); Specific Gravity,Urine 1.018 (1.001-1.035); Squamous Epithelial Cell,Urine 14 /hpf (0-4); WBC,Urine 5 /hpf (0-5)
[2018-07-02 18:21] LABS: ALT 395 U/L (9-52); AST 246 U/L (14-36); Albumin 3.7 g/dL (3.5-5.0); Alkaline Phosphatase 327 U/L (38-126); Amylase 298 U/L (30-110); Anion Gap 11 mmol/L; Blood Urea Nitrogen 7 mg/dL (7-17); Calcium 8.9 mg/dL (8.4-10.2); Carbon Dioxide 24 mmol/L (22-30); Chloride 104 mmol/L (98-107); Glucose 155 mg/dL (74-99); Sodium 139 mmol/L (137-145); Total Bilirubin 1.3 mg/dL (0.2-1.3); Total Protein 7.1 g/dL (6.3-8.2)
[2018-07-02 18:37] LABS: Lipase 3624 U/L (23-300); Potassium 3.7 mmol/L (3.5-5.1)
--- NOTE | 2018-07-02 19:12 | CT ---
EXAMINATION TYPE: CT abdomen pelvis w con DATE OF EXAM: 07/02/2018 COMPARISON: None HISTORY: RUQ pain. Cholecystectomy x4 days ago CT DLP: 1383.4 mGycm Automated exposure control for dose reduction was used. TECHNIQUE: Helical acquisition of images was performed from the lung bases through the pelvis. CONTRAST: Performed without Oral Contrast and with IV Contrast, patient injected with 100 mL of Isovue 300. FINDINGS: There is patchy atelectasis at the lung bases. There is small right pleural effusion. There is diffus e fatty infiltration of the liver. This cholecystectomy. There is 6 x 3 cm fluid collection at the ellis rgery site. Spleen appears normal. There is no pancreatic mass. The bile ducts are not dilated. There is no adrenal mass. Stomach has normal size. There are small hiatal hernia. Kidneys show satisfactory contrast opacification. Ureters are not dilated. There is no hydronephrosis . There is no retroperitoneal adenopathy. There is free fluid in the pelvis. Bladder distends smoothl y. There is no inguinal hernia. There is no evidence of a bowel obstruction. There is no mesenteric a denopathy. There are sigmoid diverticula. There is no sign of diverticulitis. Subcutaneous air bubble s related to recent surgery over the anterior abdomen. IMPRESSION: THERE IS LOW DENSITY FLUID IN THE PELVIS AND ALSO AT THE GALLBLADDER FOSSA CONSISTENT WITH CHRONIC HE MATOMA OR SEROMA. NO DILATED DUCTS.
[2018-07-02] MEDS ORDERED: HYDROmorphone 1 MG/ML 1 ML SYRINGE IVP STA (19:18)
[2018-07-02] MEDS ORDERED: SODIUM CHLORIDE 0.9% 500 ML 500 ML IV ONE (19:21)
--- NOTE | 2018-07-02 19:25 | ED ---
Abdominal Pain HPI - General Chief Complaint: Abdominal Pain Stated Complaint: POST OP PAIN Time Seen by Provider: 07/02/18 16:53 Source: patient Mode of arrival: ambulatory Limitations: no limitations - History of Present Illness Initial Comments: 57-year-old female patient presents to the emergency department today for complaints of severe right upper quadrant and midepigastric abdominal pain. Patient states that she did undergo cholecystectomy on Sunday with Dr. Moreira after being admitted for gallstone pancreatitis. Patient states she was discharged on Sunday and had been improving. Patient states that she woke up this morning she was relatively pain-free, but around 2 PM this afternoon she started to have increased pain to the upper abdomen. Patient is also reporting nausea but no vomiting. Patient states she did take her home [place] did not seem to help. States she has been passing gas, but has not had a bowel movement. She denies any fevers or chills. Denies any chest pain, shortness of breath, sweats, or dizziness. Patient denies any recent rash, back pain, numbness, tingling, dizziness, weakness, hematuria, dysuria, urinary urgency, urinary frequency, headache, visual changes, or any other complaints. - Related Data Previous Rx's Medication Instructions Recorded Docusate [Colace] 100 mg PO BID #20 capsule 06/28/18 HYDROcodone/APAP 7.5-325MG [[place] 1 tab PO Q4H PRN 3 Days #18 tab 06/28/18 7.5-325] Cefuroxime Axetil [Ceftin] 500 mg PO BID 7 Days #14 tab 06/29/18 Allergies Allergy/AdvReac Type Severity Reaction Status Date / Time No Known Allergies Allergy Verified 07/02/18 16:10 Review of Systems ROS Statement: Those systems with pertinent positive or pertinent negative responses have been documented in the HPI. ROS Other: All systems not noted in ROS Statement are negative. Past Medical History Past Medical History: No Reported History History of Any Multi-Drug Resistant Organisms: None Reported Past Surgical History: Section, Cholecystectomy Additional Past Surgical History / Comment(s): Colonoscopy-normal Past Anesthesia/Blood Transfusion Reactions: No Reported Reaction Past Psychological History: No Psychological Hx Reported Smoking Status: Never smoker Past Alcohol Use History: None Reported Past Drug Use History: None Reported - Past Family History Father Additional Family Medical History / Comment(s): Father had heart problems and a pacer. Mother Family Medical History: Hypertension Additional Family Medical History / Comment(s): Mother has had a bowel obstruction. General Exam Limitations: no limitations General appearance: alert, in no apparent distress, other (Social well-developed , well-nourished adult female patient in mild distress related to pain. Vital signs upon presentation are temperature 98.2F, pulse 84, respirations 18, blood pressure 176/84, pulse ox 95% on room air.) Eye exam: Present: normal appearance, PERRL, EOMI. Absent: scleral icterus, conjunctival injection, periorbital swelling ENT exam: Present: normal exam, normal oropharynx, mucous membranes moist Respiratory exam: Present: normal lung sounds bilaterally. Absent: respiratory distress, wheezes, rales, rhonchi, stridor Cardiovascular Exam: Present: regular rate, normal rhythm, normal heart sounds. Absent: systolic murmur, diastolic murmur, rubs, gallop, clicks GI/Abdominal exam: Present: soft, tenderness (Midepigastric and right upper quadrant tenderness), normal bowel sounds. Absent: distended, guarding, rebound , rigid Neurological exam: Present: alert, oriented X3, CN II-XII intact Psychiatric exam: Present: normal affect, normal mood Skin exam: Present: warm, dry, intact, normal color. Absent: rash Course Vital Signs 07/02/18 16:10 Temperature 98.2 F Pulse Rate 84 Respiratory 18 Rate Blood Pressure 176/84 O2 Sat by Pulse 95 Oximetry Medical Decision Making - Medical Decision Making 57-year-old female patient presents to the emergency department today for evaluation of increased upper abdominal pain. She is 4 days status post cholecystectomy after being admitted for gallstone pancreatitis. Physical examination did reveal midepigastric and right upper quadrant abdominal tenderness. Labs reviewed and did reveal elevated AST ALT, alk phos 227, amylase 298, lipase 3624. CT abdomen and pelvis was obtained and did reveal a fluid collection near the gallbladder fossa consistent with seroma or hematoma. I did discuss the case with Dr. Truong professional services consultant for Dr. Moreira. We will admit patient for GI consult and probable ERCP. We'll manage pain and increase fluids - Lab Data Result diagrams: 07/02/18 17:23 07/02/18 17:23 Lab Results 07/02/18 07/02/18 07/02/18 Range/Units 17:23 17:23 17:23 WBC 9.5 (3.8-10.6) k/uL RBC 4.08 (3.80-5.40) m/uL Hgb 12.5 (11.4-16.0) gm/dL Hct 38.4 (34.0-46.0) % MCV 93.9 (80.0-100.0) fL MCH 30.7 (25.0-35.0) pg MCHC 32.7 (31.0-37.0) g/dL RDW 13.6 (11.5-15.5) % Plt Count 241 (150-450) k/uL Neutrophils % 89 % Lymphocytes % 5 % Monocytes % 5 % Eosinophils % 1 % Basophils % 0 % Neutrophils # 8.4 H (1.3-7.7) k/uL Lymphocytes # 0.5 L (1.0-4.8) k/uL Monocytes # 0.5 (0-1.0) k/uL Eosinophils # 0.1 (0-0.7) k/uL Basophils # 0.0 (0-0.2) k/uL Sodium 139 (137-145) mmol/L Potassium 3.7 (3.5-5.1) mmol/L Chloride 104 (98-107) mmol/L Carbon Dioxide 24 (22-30) mmol/L Anion Gap 11 mmol/L BUN 7 (7-17) mg/dL Creatinine 0.45 L (0.52-1.04) mg/dL Est GFR (CKD-EPI)AfAm >90 (>60 ml/min/1.73 sqM) Est GFR (CKD-EPI)NonAf >90 (>60 ml/min/1.73 sqM) Glucose 155 H (74-99) mg/dL Calcium 8.9 (8.4-10.2) mg/dL Total Bilirubin 1.3 (0.2-1.3) mg/dL AST 246 H (14-36) U/L ALT 395 H (9-52) U/L Alkaline Phosphatase 327 H (38-126) U/L Troponin I <0.012 (0.000-0.034) ng/mL Total Protein 7.1 (6.3-8.2) g/dL Albumin 3.7 (3.5-5.0) g/dL Amylase 298 H (30-110) U/L Lipase 3624 H (23-300) U/L Urine Color Urine Appearance (Clear) Urine pH (5.0-8.0) Ur Specific [place] (1.001-1.035) Urine Protein (Negative) Urine Glucose (UA) (Negative) Urine Ketones (Negative) Urine Blood (Negative) Urine Nitrite (Negative) Urine Bilirubin (Negative) Urine Urobilinogen (<2.0) mg/dL Ur Leukocyte Esterase (Negative) Urine RBC (0-5) /hpf Urine WBC (0-5) /hpf Ur Squamous Epith Cells (0-4) /hpf Urine Mucus (None) /hpf 07/02/18 Range/Units 17:23 WBC (3.8-10.6) k/uL RBC (3.80-5.40) m/uL Hgb (11.4-16.0) gm/dL Hct (34.0-46.0) % MCV (80.0-100.0) fL MCH (25.0-35.0) pg MCHC (31.0-37.0) g/dL RDW (11.5-15.5) % Plt Count (150-450) k/uL Neutrophils % % Lymphocytes % % Monocytes % % Eosinophils % % Basophils % % Neutrophils # (1.3-7.7) k/uL Lymphocytes # (1.0-4.8) k/uL Monocytes # (0-1.0) k/uL Eosinophils # (0-0.7) k/uL Basophils # (0-0.2) k/uL Sodium (137-145) mmol/L Potassium (3.5-5.1) mmol/L Chloride (98-107) mmol/L Carbon Dioxide (22-30) mmol/L Anion Gap mmol/L BUN (7-17) mg/dL Creatinine (0.52-1.04) mg/dL Est GFR (CKD-EPI)AfAm (>60 ml/min/1.73 sqM) Est GFR (CKD-EPI)NonAf (>60 ml/min/1.73 sqM) Glucose (74-99) mg/dL Calcium (8.4-10.2) mg/dL Total Bilirubin (0.2-1.3) mg/dL AST (14-36) U/L ALT (9-52) U/L Alkaline Phosphatase (38-126) U/L Troponin I (0.000-0.034) ng/mL Total Protein (6.3-8.2) g/dL Albumin (3.5-5.0) g/dL Amylase (30-110) U/L Lipase (23-300) U/L Urine Color Dark Yellow Urine Appearance Cloudy H (Clear) Urine pH 6.0 (5.0-8.0) Ur Specific [place] 1.018 (1.001-1.035) Urine Protein 1+ H (Negative) Urine Glucose (UA) Trace H (Negative) Urine Ketones 2+ H (Negative) Urine Blood Trace H (Negative) Urine Nitrite Negative (Negative) Urine Bilirubin 1+ H (Negative) Urine Urobilinogen 3.0 (<2.0) mg/dL Ur Leukocyte Esterase Trace H (Negative) Urine RBC 5 (0-5) /hpf Urine WBC 5 (0-5) /hpf Ur Squamous Epith Cells 14 H (0-4) /hpf Urine Mucus Many H (None) /hpf - Radiology Data Radiology results: report reviewed, image reviewed CT abdomen and pelvis with contrast was obtained. Report was reviewed in its entirety. Impression by Dr. Márquez shows low density fluid in the pelvis and also the gallbladder fossa consistent with chronic hematoma or seroma. No dilated ducts. Disposition Clinical Impression: Acute pancreatitis Disposition: ADMITTED IP TO THIS [facility] Condition: Serious Referrals: Ashley Beltran DO [Primary Care Provider] - 1-2 days Decision to Admit Reason: Admit from EC Decision Date: 07/02/18 Decision Time: 19:39
[2018-07-02] MEDS ORDERED: ACETAMINOPHEN TAB 325 MG TAB PO PRN (19:40)
[2018-07-02] MEDS ORDERED: ONDANSETRON 4 MG/2 ML VIAL IVP PRN (19:40)
[2018-07-02] MEDS ORDERED: NALOXONE 0.4 MG/ML 1 ML VIAL IV PRN (19:40)
--- NOTE | 2018-07-02 22:12 | P.HPIM ---
History of Present Illness H&P Date: 07/02/18 Chief Complaint: Abdominal discomfort and pain 57-year-old female who is the status post cholecystectomy postop day #4 admitted into the hospital with severe upper abdominal discomfort and pain which started around this afternoon, she was discharged 3 days ago was in fairly stable condition denies any fever or chills denies any chest pain denies any radiation of the pain pain predominantly was localized to the abdomen no history of rash, with those problem patient presented into the emergency department, patient was found to have high normal total bilirubin with very high AST and healthy with alk phos both amylase and lipase are relatively elevated as well, patient has been admitted into the hospital with GI services for possible ERCP, patient also underwent a computed tomography scan of the abdominal and pelvis which revealed some fluid in the pelvis, chronic hematoma or seizure from my as noted in the gallbladder area more specific questioning denies any seizure-like to a loss of consciousness), denies any chest pain or radiation of pain denies any cough or sputum production, denies any nausea vomiting or diarrhea, Review of Systems All systems: negative Past Medical History Past Medical History: No Reported History History of Any Multi-Drug Resistant Organisms: None Reported Past Surgical History: Section, Cholecystectomy Additional Past Surgical History / Comment(s): Colonoscopy-normal Past Anesthesia/Blood Transfusion Reactions: No Reported Reaction Past Psychological History: No Psychological Hx Reported Smoking Status: Never smoker Past Alcohol Use History: None Reported Past Drug Use History: None Reported - Past Family History Father Additional Family Medical History / Comment(s): Father had heart problems and a pacer. Mother Family Medical History: Hypertension Additional Family Medical History / Comment(s): Mother has had a bowel obstruction. Medications and Allergies Home Medications Medication Instructions Recorded Confirmed Type Docusate [Colace] 100 mg PO BID #20 capsule 06/28/18 07/02/18 Rx HYDROcodone/APAP 7.5-325MG [[place] 1 tab PO Q4H PRN 3 Days #18 tab 06/28/1807/02 Rx 7.5-325] Cefuroxime Axetil [Ceftin] 500 mg PO BID 7 Days #14 tab 06/29/18 07/02/18 Rx Allergies Allergy/AdvReac Type Severity Reaction Status Date / Time No Known Allergies Allergy Verified 07/02/18 20:36 Physical Exam Vitals: Vital Signs Temp Pulse Resp BP Pulse Ox 07/02/18 21:11 98.0 F 87 18 190/90 98 07/02/18 20:18 182/93 07/02/18 19:38 75 18 199/95 97 07/02/18 16:10 98.2 F 84 18 176/84 95 Intake and Output 07/02/18 07/02/18 07/02/18 06:59 14:59 22:59 Other: Weight 108.862 kg - Constitutional General appearance: average body habitus, cooperative, disheveled, mild distress - EENT Eyes: anicteric sclerae, EOMI, PERRLA, normal appearance ENT: normal oropharynx Ears: bilateral: normal - Neck Neck: normal ROM Carotids: bilateral: upstroke normal, bruit absent Thyroid: bilateral: normal size - Respiratory Respiratory: bilateral: CTA - Cardiovascular Rhythm: regular Heart sounds: normal: S1, S2 - Gastrointestinal Midabdomen predominantly General gastrointestinal: decreased bowel sounds, tenderness - Integumentary Integumentary: normal, normal turgor - Neurologic Neurologic: CNII-XII intact - Musculoskeletal Musculoskeletal: gait normal, generalized weakness, strength equal bilaterally - Psychiatric Psychiatric: A&O x's 3, appropriate affect, intact judgment & insight Results CBC & Chem 7: 07/02/18 17:23 07/02/18 17:23 Labs: Abnormal Lab Results - Last 24 Hours (Table) 07/02/18 07/02/18 07/02/18 Range/Units 17:23 17:23 17:23 Neutrophils # 8.4 H (1.3-7.7) k/uL Lymphocytes # 0.5 L (1.0-4.8) k/uL Creatinine 0.45 L (0.52-1.04) mg/dL Glucose 155 H (74-99) mg/dL AST 246 H (14-36) U/L ALT 395 H (9-52) U/L Alkaline Phosphatase 327 H (38-126) U/L Amylase 298 H (30-110) U/L Lipase 3624 H (23-300) U/L Urine Appearance Cloudy H (Clear) Urine Protein 1+ H (Negative) Urine Glucose (UA) Trace H (Negative) Urine Ketones 2+ H (Negative) Urine Blood Trace H (Negative) Urine Bilirubin 1+ H (Negative) Ur Leukocyte Esterase Trace H (Negative) Ur Squamous Epith Cells 14 H (0-4) /hpf Urine Mucus Many H (None) /hpf Abdominal x-ray: report reviewed, image reviewed Assessment and Plan Assessment: Acute gallstone pancreatitis Elevated liver enzymes 4 day postop cholecystectomy Plan: Gentle rehydration Pain management GI consultation DVT prophylaxis with early early ambulation and pneumatic compression device Further recommendations pending plan of care as per clinical response of the patient Time with Patient: Greater than 30
[2018-07-02] MEDS: HYDROmorphone 1 MG/ML 1 ML SYRINGE IVP PRN (22:18)
[2018-07-03] MEDS: HYDROmorphone 1 MG/ML 1 ML SYRINGE IVP PRN ×4 (00:55→14:47)
[2018-07-03] MEDS: SODIUM CHLORIDE 0.9% 1,000 ML IV SCH ×6 (01:02→20:51)
[2018-07-03 10:49] LABS: Basophils % (A) 0 %; Eosinophils # (A) 0.1 k/uL (0-0.7); Eosinophils % (A) 2 %; HCT 35.1 % (34.0-46.0); Lymphocytes # (A) 1.2 k/uL (1.0-4.8); Lymphocytes % (A) 20 %; MCH 29.8 pg (25.0-35.0); MCHC 31.4 g/dL (31.0-37.0); MCV 94.9 fL (80.0-100.0); Mean Platelet Volume 7.5; Monocytes # (A) 0.3 k/uL (0-1.0); Monocytes % (A) 5 %; Neutrophils # (A) 4.2 k/uL (1.3-7.7); Neutrophils % (A) 72 %; Platelet Count 224 k/uL (150-450); RDW 13.8 % (11.5-15.5); WBC 5.9 k/uL (3.8-10.6)
[2018-07-03 11:03] LABS: ALT 240 U/L (9-52); AST 70 U/L (14-36); Albumin 2.9 g/dL (3.5-5.0); Alkaline Phosphatase 229 U/L (38-126); Amylase 33 U/L (30-110); Anion Gap 7 mmol/L; Blood Urea Nitrogen 6 mg/dL (7-17); Calcium 8.2 mg/dL (8.4-10.2); Carbon Dioxide 27 mmol/L (22-30); Chloride 106 mmol/L (98-107); Glucose 101 mg/dL (74-99); Lipase 144 U/L (23-300); Phosphorus 3.1 mg/dL (2.5-4.5); Potassium 3.7 mmol/L (3.5-5.1); Sodium 140 mmol/L (137-145); Total Bilirubin 0.8 mg/dL (0.2-1.3); Total Protein 5.8 g/dL (6.3-8.2)
--- NOTE | 2018-07-03 15:27 | P.PN ---
Subjective Progress Note Date: 07/03/18 Principal diagnosis: Acute pancreatitis, abdominal discomfort and pain, recent acute cholecystitis status post cholecystectomy, morbid obesity, hard of hearing 07/03/2018, patient seen eval reexamined during the rounds clinically patient is not much different from baseline but is still complaining of mild discomfort , severity however is improved, labs are reviewed the AST and ALT have improved lipase and amylase have normalized 57-year-old female who is the status post cholecystectomy postop day #4 admitted into the hospital with severe upper abdominal discomfort and pain which started around this afternoon, she was discharged 3 days ago was in fairly stable condition denies any fever or chills denies any chest pain denies any radiation of the pain pain predominantly was localized to the abdomen no history of rash, with those problem patient presented into the emergency department, patient was found to have high normal total bilirubin with very high AST and healthy with alk phos both amylase and lipase are relatively elevated as well, patient has been admitted into the hospital with GI services for possible ERCP, patient also underwent a computed tomography scan of the abdominal and pelvis which revealed some fluid in the pelvis, chronic hematoma or seizure from my as noted in the gallbladder area more specific questioning denies any seizure-like to a loss of consciousness), denies any chest pain or radiation of pain denies any cough or sputum production, denies any nausea vomiting or diarrhea, Objective - Vital Signs Vital signs: Vital Signs Temp 99.0 F 07/03/18 14:33 Pulse 72 07/03/18 14:33 Resp 18 07/03/18 14:33 BP 166/79 07/03/18 14:33 Pulse Ox 94 L 07/03/18 14:33 Intake & Output 07/02/18 07/03/18 07/03/18 18:59 06:59 18:59 Weight 108.862 kg 117.843 kg Other: Voiding Method Toilet Toilet # Voids 0 2 # Bowel Movements 0 - Exam - Constitutional General appearance: average body habitus, cooperative, disheveled, mild distress - EENT Eyes: anicteric sclerae, EOMI, PERRLA, normal appearance ENT: normal oropharynx Ears: bilateral: normal - Neck Neck: normal ROM Carotids: bilateral: upstroke normal, bruit absent Thyroid: bilateral: normal size - Respiratory Respiratory: bilateral: CTA - Cardiovascular Rhythm: regular Heart sounds: normal: S1, S2 - Gastrointestinal Midabdomen predominantly General gastrointestinal: decreased bowel sounds, tenderness - Integumentary Integumentary: normal, normal turgor - Neurologic Neurologic: CNII-XII intact - Musculoskeletal Musculoskeletal: gait normal, generalized weakness, strength equal bilaterally - Psychiatric Psychiatric: A&O x's 3, appropriate affect, intact judgment & insight - Labs CBC & Chem 7: 07/03/18 10:13 07/03/18 10:13 Labs: Abnormal Lab Results - Last 24 Hours (Table) 07/02/18 07/02/18 07/02/18 Range/Units 17:23 17:23 17:23 RBC (3.80-5.40) m/uL Hgb (11.4-16.0) gm/dL Neutrophils # 8.4 H (1.3-7.7) k/uL Lymphocytes # 0.5 L (1.0-4.8) k/uL BUN (7-17) mg/dL Creatinine 0.45 L (0.52-1.04) mg/dL Glucose 155 H (74-99) mg/dL Calcium (8.4-10.2) mg/dL AST 246 H (14-36) U/L ALT 395 H (9-52) U/L Alkaline Phosphatase 327 H (38-126) U/L Total Protein (6.3-8.2) g/dL Albumin (3.5-5.0) g/dL Amylase 298 H (30-110) U/L Lipase 3624 H (23-300) U/L Urine Appearance Cloudy H (Clear) Urine Protein 1+ H (Negative) Urine Glucose (UA) Trace H (Negative) Urine Ketones 2+ H (Negative) Urine Blood Trace H (Negative) Urine Bilirubin 1+ H (Negative) Ur Leukocyte Esterase Trace H (Negative) Ur Squamous Epith Cells 14 H (0-4) /hpf Urine Mucus Many H (None) /hpf 07/03/18 07/03/18 Range/Units 10:13 10:13 RBC 3.70 L (3.80-5.40) m/uL Hgb 11.0 L (11.4-16.0) gm/dL Neutrophils # (1.3-7.7) k/uL Lymphocytes # (1.0-4.8) k/uL BUN 6 L (7-17) mg/dL Creatinine 0.45 L (0.52-1.04) mg/dL Glucose 101 H (74-99) mg/dL Calcium 8.2 L (8.4-10.2) mg/dL AST 70 H (14-36) U/L ALT 240 H (9-52) U/L Alkaline Phosphatase 229 H (38-126) U/L Total Protein 5.8 L (6.3-8.2) g/dL Albumin 2.9 L (3.5-5.0) g/dL Amylase (30-110) U/L Lipase (23-300) U/L Urine Appearance (Clear) Urine Protein (Negative) Urine Glucose (UA) (Negative) Urine Ketones (Negative) Urine Blood (Negative) Urine Bilirubin (Negative) Ur Leukocyte Esterase (Negative) Ur Squamous Epith Cells (0-4) /hpf Urine Mucus (None) /hpf Assessment and Plan Assessment: Acute gallstone pancreatitis Elevated liver enzymes 5 day postop cholecystectomy Morbid obesity Hard of hearing Plan: Gentle rehydration Pain management GI consultation DVT prophylaxis with early early ambulation and pneumatic compression device Repeat labs tomorrow Further recommendations pending plan of care as per clinical response of the patient Time with Patient: Greater than 30
--- NOTE | 2018-07-03 16:58 | NM ---
EXAMINATION TYPE: NM hepatobiliary wo EF DATE OF EXAM: 07/03/2018 COMPARISON: NONE HISTORY: Gallbladder removed June 28, 2018. Pain. TECHNIQUE: After the intravenous administration of 5.19 mCi Tc 99m Mebrofenin hepatobiliary scintigra phy is performed. Immediate images post injection. FINDINGS: There is prompt uptake of the tracer by the liver that has normal size and contour. There is no focal liver defect. There is tracer in the small bowel at 15 minutes which excludes obstruction of the com mon bile duct. There is no sign of tracer extravasation. Tracer mostly cleared from the liver at 1 ho ur. All of the tracer is in the small bowel. IMPRESSION: Normal exam. Cholecystectomy. No evidence of a bile leak.
[2018-07-03] MEDS ORDERED: HYDROcodone/APAP 5-325MG 1 EACH TAB PO PRN (20:23)
--- NOTE | 2018-07-03 20:23 | P.GSHP ---
History of Present Illness H&P Date: 07/03/18 Chief Complaint: Gallstone pancreatitis Patient underwent laparoscopic cholecystectomy last week. Patient was discharged on Sunday. At that time the patient had gallstone pancreatitis but it was improving. No biliary tree evaluation during that hospitalization. She comes back to the hospital complaining of right upper quadrant pain. She feels gassy in that area. She was taking [place] without relief. Pain came on rather suddenly once again. Some radiation to the back. Some nausea and vomiting. Labs were checked. Patient's liver enzymes amylase and lipase all elevated. These numbers are improved today. HIDA scan was obtained to rule out bile leak which was normal. - Review of Systems Comment: The patient denies any acute changes in vision or hearing, no dysphagia or odynophagia, no chest pain or shortness of breath, no dysuria or hematuria, no headache, no runny nose, no rectal bleeding or melena, no unexplained weight loss Past Medical History Past Medical History: No Reported History History of Any Multi-Drug Resistant Organisms: None Reported Past Surgical History: Section, Cholecystectomy Additional Past Surgical History / Comment(s): Colonoscopy-normal Past Anesthesia/Blood Transfusion Reactions: No Reported Reaction Past Psychological History: No Psychological Hx Reported Smoking Status: Never smoker Past Alcohol Use History: None Reported Past Drug Use History: None Reported - Past Family History Father Additional Family Medical History / Comment(s): Father had heart problems and a pacer. Mother Family Medical History: Hypertension Additional Family Medical History / Comment(s): Mother has had a bowel obstruction. Medications and Allergies Home Medications Medication Instructions Recorded Confirmed Type Docusate [Colace] 100 mg PO BID #20 capsule 06/28/18 07/02/18 Rx HYDROcodone/APAP 7.5-325MG [[place] 1 tab PO Q4H PRN 3 Days #18 tab 06/28/1807/02 Rx 7.5-325] Cefuroxime Axetil [Ceftin] 500 mg PO BID 7 Days #14 tab 06/29/18 07/02/18 Rx Allergies Allergy/AdvReac Type Severity Reaction Status Date / Time No Known Allergies Allergy Verified 07/02/18 20:36 Surgical - Exam Vital Signs Temp Pulse Resp BP Pulse Ox 98.2 F 84 18 176/84 95 07/02/18 16:10 07/02/18 16:10 07/02/18 16:10 07/02/18 16:10 07/02/18 16:10 Physical exam: General: Well-developed, well-nourished HEENT: Normocephalic, sclerae nonicteric Abdomen: Nondistended, mild right upper quadrant tenderness, incisions clean and dry Extremities: No edema Neuro: Alert and oriented Results - Labs 07/03/18 10:13 07/03/18 10:13 Abnormal Lab Results - Last 24 Hours (Table) 07/03/18 07/03/18 Range/Units 10:13 10:13 RBC 3.70 L (3.80-5.40) m/uL Hgb 11.0 L (11.4-16.0) gm/dL BUN 6 L (7-17) mg/dL Creatinine 0.45 L (0.52-1.04) mg/dL Glucose 101 H (74-99) mg/dL Calcium 8.2 L (8.4-10.2) mg/dL AST 70 H (14-36) U/L ALT 240 H (9-52) U/L Alkaline Phosphatase 229 H (38-126) U/L Total Protein 5.8 L (6.3-8.2) g/dL Albumin 2.9 L (3.5-5.0) g/dL Diabetes panel 07/03/18 Range/Units 10:13 Sodium 140 (137-145) mmol/L Potassium 3.7 (3.5-5.1) mmol/L Chloride 106 (98-107) mmol/L Carbon Dioxide 27 (22-30) mmol/L BUN 6 L (7-17) mg/dL Creatinine 0.45 L (0.52-1.04) mg/dL Glucose 101 H (74-99) mg/dL Calcium 8.2 L (8.4-10.2) mg/dL AST 70 H (14-36) U/L ALT 240 H (9-52) U/L Alkaline Phosphatase 229 H (38-126) U/L Total Protein 5.8 L (6.3-8.2) g/dL Albumin 2.9 L (3.5-5.0) g/dL Calcium panel 07/03/18 Range/Units 10:13 Calcium 8.2 L (8.4-10.2) mg/dL Phosphorus 3.1 (2.5-4.5) mg/dL Albumin 2.9 L (3.5-5.0) g/dL Pituitary panel 07/03/18 Range/Units 10:13 Sodium 140 (137-145) mmol/L Potassium 3.7 (3.5-5.1) mmol/L Chloride 106 (98-107) mmol/L Carbon Dioxide 27 (22-30) mmol/L BUN 6 L (7-17) mg/dL Creatinine 0.45 L (0.52-1.04) mg/dL Glucose 101 H (74-99) mg/dL Calcium 8.2 L (8.4-10.2) mg/dL Adrenal panel 07/03/18 Range/Units 10:13 Sodium 140 (137-145) mmol/L Potassium 3.7 (3.5-5.1) mmol/L Chloride 106 (98-107) mmol/L Carbon Dioxide 27 (22-30) mmol/L BUN 6 L (7-17) mg/dL Creatinine 0.45 L (0.52-1.04) mg/dL Glucose 101 H (74-99) mg/dL Calcium 8.2 L (8.4-10.2) mg/dL Total Bilirubin 0.8 (0.2-1.3) mg/dL AST 70 H (14-36) U/L ALT 240 H (9-52) U/L Alkaline Phosphatase 229 H (38-126) U/L Total Protein 5.8 L (6.3-8.2) g/dL Albumin 2.9 L (3.5-5.0) g/dL Assessment and Plan (1) Pancreatitis due to biliary obstruction Narrative/Plan: Will recheck labs tomorrow. Would prefer patient have either MRCP or ERCP during this hospitalization. Further decisions pending tomorrow as lab work. GI and DVT prophylaxis. Current Visit: No Status: Acute Code(s): K85.90 - ACUTE PANCREATITIS WITHOUT NECROSIS OR INFECTION, UNSP; K83.1 - OBSTRUCTION OF BILE DUCT SNOMED Code(s): 599744960
[2018-07-03] MEDS: FAMOTIDINE 20 MG/2 ML VIAL IV SCH (20:51)
[2018-07-04] MEDS: HEPARIN SODIUM,PORCINE 5,000 UNIT/ML 1 ML VIAL SQ SCH ×4 (00:02→23:47)
[2018-07-04] MEDS: SODIUM CHLORIDE 0.9% 1,000 ML IV SCH ×5 (00:02→20:39)
--- NOTE | 2018-07-04 06:56 | P.CONS ---
History of Present Illness - Reason for Consult Consult date: 07/03/18 Abdominal pain Requesting physician: Brad Truong - Chief Complaint Abdominal pain - History of Present Illness The patient is a pleasant 57-year-old female who recently underwent laparoscopic cholecystectomy and presented back to the hospital with abdominal pain. The patient is currently postop day #5 from her cholecystectomy. She reported to the hospital with complaints of increasing upper abdominal pain. The patient reports that the pain was associated with nausea but no episodes of vomiting. Subsequently the patient has had improvement of her pain. Initially on presentation the patient had a computed tomography scan which showed a fluid- filled gallbladder fossa and pelvis without any dilated ducts. Laboratory evaluation on presentation was significant for a total bilirubin of 1.3 which trended to 0.8, alkaline phosphatase 327 the trended to 229, AST 246 trended to 70 and ALT 395 the trended to 240. Lipase was significantly elevated on presentation at 3624. The patient denies any associated fevers, chills or change in her bowel habits. Her colonoscopy was at the age of 49. Review of Systems REVIEW OF SYSTEMS: CARDIO: Denies any chest pain or palpitations. PULMONARY: Denies any shortness of breath or wheezing. GENITOURINARY: No dysuria or hematuria. MUSCULOSKELETAL: No weakness reported. SKIN: Denies any new rashes or lesions, jaundice or pallor. PSYCHIATRIC: Denies any depression or anxiety. NEUROLOGY: Denies headache, denies any new focal deficits. EARS: No tinnitus, discharge or new hearing loss. NOSE: No discharge or congestion. EYES: No pain in eyes or change in vision. CONSTITUTIONAL: No recent weight loss. No fever, chills, night sweats. Past Medical History Past Medical History: No Reported History History of Any Multi-Drug Resistant Organisms: None Reported Past Surgical History: Section, Cholecystectomy Additional Past Surgical History / Comment(s): Colonoscopy-normal Past Anesthesia/Blood Transfusion Reactions: No Reported Reaction Past Psychological History: No Psychological Hx Reported Smoking Status: Never smoker Past Alcohol Use History: None Reported Past Drug Use History: None Reported - Past Family History Father Additional Family Medical History / Comment(s): Father had heart problems and a pacer. Mother Family Medical History: Hypertension Additional Family Medical History / Comment(s): Mother has had a bowel obstruction. Medications and Allergies Home Medications Medication Instructions Recorded Confirmed Type Docusate [Colace] 100 mg PO BID #20 capsule 06/28/18 07/02/18 Rx HYDROcodone/APAP 7.5-325MG [[place] 1 tab PO Q4H PRN 3 Days #18 tab 06/28/1807/02 Rx 7.5-325] Cefuroxime Axetil [Ceftin] 500 mg PO BID 7 Days #14 tab 06/29/18 07/02/18 Rx Allergies Allergy/AdvReac Type Severity Reaction Status Date / Time No Known Allergies Allergy Verified 07/02/18 20:36 Physical Exam Vitals: Vital Signs Temp Pulse Resp BP Pulse Ox 07/03/18 22:53 99.3 F 75 15 151/75 94 L 07/03/18 14:33 99.0 F 72 18 166/79 94 L 07/03/18 06:53 98.4 F 79 18 145/73 92 L Intake and Output 07/03/18 07/03/18 07/04/18 14:59 22:59 06:59 Intake Total 100 Balance 100 Intake: Oral 100 Other: Voiding Method Toilet Toilet # Voids 2 1 On physical examination, patient appears comfortable in no apparent distress. HEAD: Normocephalic, atraumatic. EYES: No scleral icterus. No conjunctival injection. MOUTH: No lesions, tongue midline. NECK: Trachea midline, no gross abnormalities. CHEST: Clear to auscultation with no wheezing or rhonchi appreciated. HEART: Regular rate and rhythm. ABDOMEN: Soft, obese, mildly tender. Bowel sounds are positive. No organomegaly. No guarding or rigidity. EXTREMITIES: No pedal edema. SKIN: No rashes, no jaundice. NEUROLOGIC: Alert and oriented x3. No focal deficits. Results CBC & Chem 7: 07/03/18 10:13 07/03/18 10:13 Labs: Abnormal Lab Results - Last 24 Hours (Table) 07/03/18 07/03/18 Range/Units 10:13 10:13 RBC 3.70 L (3.80-5.40) m/uL Hgb 11.0 L (11.4-16.0) gm/dL BUN 6 L (7-17) mg/dL Creatinine 0.45 L (0.52-1.04) mg/dL Glucose 101 H (74-99) mg/dL Calcium 8.2 L (8.4-10.2) mg/dL AST 70 H (14-36) U/L ALT 240 H (9-52) U/L Alkaline Phosphatase 229 H (38-126) U/L Total Protein 5.8 L (6.3-8.2) g/dL Albumin 2.9 L (3.5-5.0) g/dL CT scan - abdomen: report reviewed (computed tomography scan which showed a fluid-filled gallbladder fossa and pelvis without any dilated ducts.) Assessment and Plan (1) Acute pancreatitis Narrative/Plan: Patient presenting with pain and elevation in lipase after recent cholecystectomy. Patient had elevation in liver enzymes on presentation which is subsequently trended down. No evidence of biliary dilation on computed tomography scan or biliary leak on HIDA scan. Possibility of a passed gallstone as the etiology of her pancreatitis, however the patient's is currently feeling better with improving liver enzymes. Current Visit: Yes Status: Acute Code(s): K85.90 - ACUTE PANCREATITIS WITHOUT NECROSIS OR INFECTION, UNSP SNOMED Code(s): 173308059 (2) Abdominal pain Current Visit: Yes Status: Acute Code(s): R10.9 - UNSPECIFIED ABDOMINAL PAIN SNOMED Code(s): 78376276 (3) History of cholecystectomy Current Visit: Yes Status: Acute Code(s): Z90.49 - ACQUIRED ABSENCE OF OTHER SPECIFIED PARTS OF DIGESTIVE TRACT SNOMED Code(s): 445960764 Plan: Supportive care Diet per surgery Injury to trend liver enzymes Can consider MRCP for further evaluation if liver enzymes do not continue to trend down HIDA scan reviewed Thank you for allowing us to participate in the care of this patient we will continue to follow
[2018-07-04] MEDS: FAMOTIDINE 20 MG/2 ML VIAL IV SCH ×2 (09:10→20:40)
[2018-07-04 10:00] LABS: Basophils % (A) 0 %; Eosinophils # (A) 0.2 k/uL (0-0.7); Eosinophils % (A) 3 %; HCT 37.4 % (34.0-46.0); HGB 12.3 gm/dL (11.4-16.0); Lymphocytes # (A) 1.2 k/uL (1.0-4.8); Lymphocytes % (A) 23 %; MCHC 32.8 g/dL (31.0-37.0); MCV 94.3 fL (80.0-100.0); Mean Platelet Volume 9.7; Monocytes # (A) 0.2 k/uL (0-1.0); Monocytes % (A) 5 %; Neutrophils # (A) 3.7 k/uL (1.3-7.7); Neutrophils % (A) 69 %; Platelet Count 188 k/uL (150-450); RBC 3.96 m/uL (3.80-5.40); RDW 13.6 % (11.5-15.5); WBC 5.3 k/uL (3.8-10.6)
[2018-07-04 10:29] LABS: ALT 169 U/L (9-52); AST 34 U/L (14-36); Albumin 3.1 g/dL (3.5-5.0); Alkaline Phosphatase 188 U/L (38-126); Amylase 36 U/L (30-110); Anion Gap 8 mmol/L; Blood Urea Nitrogen 5 mg/dL (7-17); Calcium 8.7 mg/dL (8.4-10.2); Carbon Dioxide 29 mmol/L (22-30); Chloride 106 mmol/L (98-107); Glucose 134 mg/dL (74-99); Lipase 242 U/L (23-300); Potassium 3.8 mmol/L (3.5-5.1); Sodium 143 mmol/L (137-145); Total Bilirubin 0.7 mg/dL (0.2-1.3); Total Protein 6.3 g/dL (6.3-8.2)
[2018-07-04] MEDS: DOCUSATE 100 MG CAP PO SCH ×2 (11:46→20:40)
[2018-07-04] MEDS ORDERED: ALPRAZolam 0.5 MG TAB PO PRN (17:40)
--- NOTE | 2018-07-04 17:47 | MR ---
EXAMINATION TYPE: MR MRCP DATE OF EXAM: 07/04/2018 COMPARISON: None HISTORY: Abdominal pain, elevated LFTs post cholecystectomy Standard multiplanar, multisequence MRI departmental protocol Multiplanar, multisequence images of the were acquired. Diffusion weighted imaging was performed. FINDINGS: Liver shows no focal defect. Spleen has normal size. Kidneys have normal size and contour. There is no hydronephrosis. There is no evidence of a pancreatic mass. Pancreatic duct is not dilated . There is 5.6 x 2.9 cm fluid collection in the gallbladder fossa. The duodenum appears normal. I see no evidence of retroperitoneal adenopathy. There is small right pleural effusion. There is minimal l eft pleural effusion. There is 2.9 cm rounded lobulated area of increased signal on the T2 images in the left lobe of the liver adjacent to the stomach. This is consistent with a cyst. The common bile d uct is not dilated. Intrahepatic bile ducts are not dilated. Common bile duct measures up to 5 mm. IMPRESSION: There is fluid in the gallbladder fossa consistent with chronic hematoma or seroma. Small cyst in the left lobe of the liver. No dilated ducts. A bile leak is not entirely excluded. The hepatobiliary sc an yesterday failed to demonstrate any bile extravasation. Small bilateral pleural effusions.
--- NOTE | 2018-07-04 19:47 | P.PN ---
Subjective Progress Note Date: 07/04/18 Principal diagnosis: Acute pancreatitis, abdominal discomfort and pain, recent acute cholecystitis status post cholecystectomy, morbid obesity, hard of hearing 07/04/2018, patient seen eval reexamined during the rounds severity of pain is improved patient is a 50 more comfortable, GI services have evaluated this patient MRI of the the biliary tract has been ordered, no significant pathology except for some fluid/C [place]/hematoma accumulation and gallbladder foci area has been noted, patient is somewhat anxious blood pressure is running on the higher side patient does not have any history of hypertension it appears to be related to anxiety she is being started on as needed Xanax Ammann the liver enzymes however continued to improve significantly, 07/03/2018, patient seen eval reexamined during the rounds clinically patient is not much different from baseline but is still complaining of mild discomfort , severity however is improved, labs are reviewed the AST and ALT have improved lipase and amylase have normalized 57-year-old female who is the status post cholecystectomy postop day #4 admitted into the hospital with severe upper abdominal discomfort and pain which started around this afternoon, she was discharged 3 days ago was in fairly stable condition denies any fever or chills denies any chest pain denies any radiation of the pain pain predominantly was localized to the abdomen no history of rash, with those problem patient presented into the emergency department, patient was found to have high normal total bilirubin with very high AST and healthy with alk phos both amylase and lipase are relatively elevated as well, patient has been admitted into the hospital with GI services for possible ERCP, patient also underwent a computed tomography scan of the abdominal and pelvis which revealed some fluid in the pelvis, chronic hematoma or seizure from my as noted in the gallbladder area more specific questioning denies any seizure-like to a loss of consciousness), denies any chest pain or radiation of pain denies any cough or sputum production, denies any nausea vomiting or diarrhea, Objective - Vital Signs Vital signs: Vital Signs Temp 97.9 F 07/04/18 15:00 Pulse 94 07/04/18 15:00 Resp 20 07/04/18 15:00 BP 174/70 07/04/18 16:58 Pulse Ox 95 07/04/18 15:00 Intake & Output 07/04/18 07/04/18 07/05/18 06:59 18:59 06:59 Intake Total 300 240 Balance 300 240 Intake: Oral 300 240 Other: Voiding Method Toilet # Voids 1 2 - Exam - Constitutional General appearance: average body habitus, cooperative, disheveled, mild distress - EENT Eyes: anicteric sclerae, EOMI, PERRLA, normal appearance ENT: normal oropharynx Ears: bilateral: normal - Neck Neck: normal ROM Carotids: bilateral: upstroke normal, bruit absent Thyroid: bilateral: normal size - Respiratory Respiratory: bilateral: CTA - Cardiovascular Rhythm: regular Heart sounds: normal: S1, S2 - Gastrointestinal Midabdomen predominantly General gastrointestinal: decreased bowel sounds, tenderness - Integumentary Integumentary: normal, normal turgor - Neurologic Neurologic: CNII-XII intact - Musculoskeletal Musculoskeletal: gait normal, generalized weakness, strength equal bilaterally - Psychiatric Psychiatric: A&O x's 3, appropriate affect, intact judgment & insight - Labs CBC & Chem 7: 07/04/18 09:48 07/04/18 09:48 Labs: Abnormal Lab Results - Last 24 Hours (Table) 07/04/18 Range/Units 09:48 BUN 5 L (7-17) mg/dL Creatinine 0.49 L (0.52-1.04) mg/dL Glucose 134 H (74-99) mg/dL ALT 169 H (9-52) U/L Alkaline Phosphatase 188 H (38-126) U/L Albumin 3.1 L (3.5-5.0) g/dL Assessment and Plan Assessment: Acute gallstone pancreatitis Elevated blood pressure/hypertension new finding Elevated liver enzymes 5 day postop cholecystectomy Morbid obesity Hard of hearing Plan: Gentle rehydration Pain management May need to start antihypertensive agents in blood pressure consistently elevated GI consultation DVT prophylaxis with early early ambulation and pneumatic compression device Repeat labs tomorrow Further recommendations pending plan of care as per clinical response of the patient Time with Patient: Greater than 30
--- NOTE | 2018-07-04 19:59 | P.PN ---
Subjective Progress Note Date: 07/04/18 Principal diagnosis: Right upper quadrant pain Patient's liver enzymes today are improved. She underwent MRCP which showed some fluid in the gallbladder fossa but no evidence of choledocholithiasis. Patient does feel better today than yesterday although still rates her pain 4-5 out of 10. She is tolerating clears. Objective - Vital Signs Vital signs: Vital Signs Temp 97.9 F 07/04/18 15:00 Pulse 94 07/04/18 15:00 Resp 20 07/04/18 15:00 BP 174/70 07/04/18 16:58 Pulse Ox 95 07/04/18 15:00 Intake & Output 07/04/18 07/04/18 07/05/18 06:59 18:59 06:59 Intake Total 300 240 Balance 300 240 Intake: Oral 300 240 Other: Voiding Method Toilet # Voids 1 2 - Exam Abdomen: Soft, nondistended, mild right upper quadrant tenderness - Labs CBC & Chem 7: 07/04/18 09:48 07/04/18 09:48 Labs: Abnormal Lab Results - Last 24 Hours (Table) 07/04/18 Range/Units 09:48 BUN 5 L (7-17) mg/dL Creatinine 0.49 L (0.52-1.04) mg/dL Glucose 134 H (74-99) mg/dL ALT 169 H (9-52) U/L Alkaline Phosphatase 188 H (38-126) U/L Albumin 3.1 L (3.5-5.0) g/dL Assessment and Plan (1) Pancreatitis due to biliary obstruction Narrative/Plan: Will check repeat labs tomorrow. Increase diet. Possible discharge tomorrow. Current Visit: No Status: Acute Code(s): K85.90 - ACUTE PANCREATITIS WITHOUT NECROSIS OR INFECTION, UNSP; K83.1 - OBSTRUCTION OF BILE DUCT SNOMED Code(s): 377734405
[2018-07-05] MEDS: SODIUM CHLORIDE 0.9% 1,000 ML IV SCH ×2 (05:18→08:16)
[2018-07-05 06:32] VITALS: BP 147/82; PULSE 69; RESP 19; TEMP 97.6
[2018-07-05 07:57] LABS: Basophils % (A) 1 %; Eosinophils # (A) 0.2 k/uL (0-0.7); Eosinophils % (A) 4 %; HCT 39.5 % (34.0-46.0); HGB 12.5 gm/dL (11.4-16.0); Lymphocytes # (A) 1.5 k/uL (1.0-4.8); Lymphocytes % (A) 27 %; MCH 29.7 pg (25.0-35.0); MCHC 31.6 g/dL (31.0-37.0); Mean Platelet Volume 7.8; Monocytes # (A) 0.3 k/uL (0-1.0); Monocytes % (A) 6 %; Neutrophils # (A) 3.2 k/uL (1.3-7.7); Neutrophils % (A) 60 %; Platelet Count 271 k/uL (150-450); RDW 13.5 % (11.5-15.5); WBC 5.3 k/uL (3.8-10.6)
[2018-07-05 08:05] LABS: ALT 124 U/L (9-52); AST 24 U/L (14-36); Albumin 3.2 g/dL (3.5-5.0); Alkaline Phosphatase 177 U/L (38-126); Anion Gap 11 mmol/L; Blood Urea Nitrogen 4 mg/dL (7-17); Calcium 8.5 mg/dL (8.4-10.2); Carbon Dioxide 24 mmol/L (22-30); Chloride 109 mmol/L (98-107); Glucose 108 mg/dL (74-99); Potassium 3.6 mmol/L (3.5-5.1); Sodium 144 mmol/L (137-145); Total Bilirubin 0.7 mg/dL (0.2-1.3); Total Protein 6.4 g/dL (6.3-8.2)
[2018-07-05] MEDS: HEPARIN SODIUM,PORCINE 5,000 UNIT/ML 1 ML VIAL SQ SCH (08:19)
[2018-07-05] MEDS: FAMOTIDINE 20 MG/2 ML VIAL IV SCH (08:20)
[2018-07-05] MEDS: DOCUSATE 100 MG CAP PO SCH (08:20)
--- NOTE | 2018-07-05 08:56 | P.PN ---
Subjective Progress Note Date: 07/04/18 Principal diagnosis: abdominal pain, elevated liver enzymes Patient was seen lying in bed with no abdominal pain. Tolerated diet. No acute complaints. Objective - Vital Signs Vital signs: Vital Signs Temp 97.9 F 07/04/18 23:00 Pulse 73 07/04/18 23:00 Resp 18 07/04/18 23:00 BP 149/75 07/04/18 23:00 Pulse Ox 92 L 07/04/18 23:00 Intake & Output 07/04/18 07/04/18 07/05/18 06:59 18:59 06:59 Intake Total 300 240 Balance 300 240 Intake: Oral 300 240 Other: Voiding Method Toilet # Voids 1 2 - Exam On physical examination, patient appears comfortable in no apparent distress. HEAD: Normocephalic, atraumatic. EYES: No scleral icterus. No conjunctival injection. MOUTH: No lesions, tongue midline. NECK: Trachea midline, no gross abnormalities. CHEST: Clear to auscultation with no wheezing or rhonchi appreciated. HEART: Regular rate and rhythm. ABDOMEN: Soft, obese. Bowel sounds are positive. No organomegaly. No guarding or rigidity. EXTREMITIES: No pedal edema. SKIN: No rashes, no jaundice. NEUROLOGIC: Alert and oriented x3. No focal deficits. - Labs CBC & Chem 7: 07/05/18 07:37 07/05/18 07:37 Labs: Abnormal Lab Results - Last 24 Hours (Table) 07/04/18 Range/Units 09:48 BUN 5 L (7-17) mg/dL Creatinine 0.49 L (0.52-1.04) mg/dL Glucose 134 H (74-99) mg/dL ALT 169 H (9-52) U/L Alkaline Phosphatase 188 H (38-126) U/L Albumin 3.1 L (3.5-5.0) g/dL Assessment and Plan (1) Acute pancreatitis Narrative/Plan: Patient presenting with pain and elevation in lipase after recent cholecystectomy. Patient had elevation in liver enzymes on presentation which is subsequently trended down. No evidence of biliary dilation on computed tomography scan or biliary leak on HIDA scan. No evidence of choledocholithiasis on MRCP. Possibility of a passed gallstone as the etiology of her pancreatitis, however the patient's is currently feeling better with improving liver enzymes. Current Visit: Yes Status: Acute Code(s): K85.90 - ACUTE PANCREATITIS WITHOUT NECROSIS OR INFECTION, UNSP SNOMED Code(s): 089039336 (2) Abdominal pain Current Visit: Yes Status: Acute Code(s): R10.9 - UNSPECIFIED ABDOMINAL PAIN SNOMED Code(s): 46373916 (3) History of cholecystectomy Current Visit: Yes Status: Acute Code(s): Z90.49 - ACQUIRED ABSENCE OF OTHER SPECIFIED PARTS OF DIGESTIVE TRACT SNOMED Code(s): 048981608 Plan: Supportive care Diet per surgery Improved liver enzymes noted MRCP negative for choledocholithiasis HIDA scan reviewed Okay for discharge from gastroenterology Thank you for allowing us to participate in the care of this patient we will standby, please call us back with any questions or concerns
--- NOTE | 2018-07-05 09:27 | P.DS ---
Providers Date of admission: 07/02/18 19:48 Expected date of discharge: 07/05/18 Attending physician: Brad Truong Consults: 07/02/18 19:41 Consult Physician Routine Consulting Provider: Maikel Medellin Consult Reason/Comments: Medical Management Do you want consulting provider notified?: Yes Primary care physician: Ashley Beltran - Discharge Diagnosis(es) (1) Pancreatitis due to biliary obstruction Patient readmitted after recent cholecystectomy for abdominal pain. Patient's liver enzymes were elevated. Suspicion for choledocholithiasis. Patient had an MRCP that was benign. Also had a HIDA scan which showed no evidence of biliary leak. The patient's enzymes have improved. Her pain is now 2 out of 10. She would like to go home. We'll discharge with plans for follow-up with Dr. Moreira next Sunday. Current Visit: No Status: Acute Patient Condition at Discharge: Serious Plan - Discharge Summary New Discharge Prescriptions: No Action Docusate [Colace] 100 mg PO BID #20 capsule HYDROcodone/APAP 7.5-325MG [[place] 7.5-325] 1 tab PO Q4H PRN 3 Days #18 tab PRN Reason: Pain Cefuroxime Axetil [Ceftin] 500 mg PO BID 7 Days #14 tab Discharge Medication List Docusate [Colace] 100 mg PO BID #20 capsule 06/28/18 [Rx] HYDROcodone/APAP 7.5-325MG [[place] 7.5-325] 1 tab PO Q4H PRN 3 Days #18 tab 06/28 [Rx] Cefuroxime Axetil [Ceftin] 500 mg PO BID 7 Days #14 tab 06/29/18 [Rx] Follow up Appointment(s)/Referral(s): Ashley Beltran DO [Primary Care Provider] - 1-2 days
--- NOTE | 2018-07-05 16:40 | P.PN ---
Subjective Progress Note Date: 07/05/18 Principal diagnosis: Acute pancreatitis, abdominal discomfort and pain, recent acute cholecystitis status post cholecystectomy, morbid obesity, hard of hearing 07/05/2018, patient seen eval examined during rounds earlier this morning, clinically patient has been doing well patient has been cleared by GI services as well as general surgery likely will be discharged later on today patient to follow-up with primary care provider as per recommendation, he would medications reviewed 07/04/2018, patient seen eval reexamined during the rounds severity of pain is improved patient is a 50 more comfortable, GI services have evaluated this patient MRI of the the biliary tract has been ordered, no significant pathology except for some fluid/C [place]/hematoma accumulation and gallbladder foci area has been noted, patient is somewhat anxious blood pressure is running on the higher side patient does not have any history of hypertension it appears to be related to anxiety she is being started on as needed Xanax Ammann the liver enzymes however continued to improve significantly, 07/03/2018, patient seen eval reexamined during the rounds clinically patient is not much different from baseline but is still complaining of mild discomfort , severity however is improved, labs are reviewed the AST and ALT have improved lipase and amylase have normalized 57-year-old female who is the status post cholecystectomy postop day #4 admitted into the hospital with severe upper abdominal discomfort and pain which started around this afternoon, she was discharged 3 days ago was in fairly stable condition denies any fever or chills denies any chest pain denies any radiation of the pain pain predominantly was localized to the abdomen no history of rash, with those problem patient presented into the emergency department, patient was found to have high normal total bilirubin with very high AST and healthy with alk phos both amylase and lipase are relatively elevated as well, patient has been admitted into the hospital with GI services for possible ERCP, patient also underwent a computed tomography scan of the abdominal and pelvis which revealed some fluid in the pelvis, chronic hematoma or seizure from my as noted in the gallbladder area more specific questioning denies any seizure-like to a loss of consciousness), denies any chest pain or radiation of pain denies any cough or sputum production, denies any nausea vomiting or diarrhea, Objective - Vital Signs Vital signs: Vital Signs Temp 97.6 F 07/05/18 06:31 Pulse 69 07/05/18 06:31 Resp 19 07/05/18 06:31 BP 147/82 07/05/18 06:31 Pulse Ox 95 07/05/18 06:31 Intake & Output 07/04/18 07/05/18 07/05/18 18:59 06:59 18:59 Intake Total 240 Balance 240 Intake: Oral 240 Other: Voiding Method Toilet # Voids 2 2 - Exam - Constitutional General appearance: average body habitus, cooperative, disheveled, mild distress - EENT Eyes: anicteric sclerae, EOMI, PERRLA, normal appearance ENT: normal oropharynx Ears: bilateral: normal - Neck Neck: normal ROM Carotids: bilateral: upstroke normal, bruit absent Thyroid: bilateral: normal size - Respiratory Respiratory: bilateral: CTA - Cardiovascular Rhythm: regular Heart sounds: normal: S1, S2 - Gastrointestinal Midabdomen predominantly General gastrointestinal: decreased bowel sounds, tenderness - Integumentary Integumentary: normal, normal turgor - Neurologic Neurologic: CNII-XII intact - Musculoskeletal Musculoskeletal: gait normal, generalized weakness, strength equal bilaterally - Psychiatric Psychiatric: A&O x's 3, appropriate affect, intact judgment & insight - Labs CBC & Chem 7: 07/05/18 07:37 07/05/18 07:37 Labs: Abnormal Lab Results - Last 24 Hours (Table) 07/05/18 Range/Units 07:37 Chloride 109 H (98-107) mmol/L BUN 4 L (7-17) mg/dL Creatinine 0.48 L (0.52-1.04) mg/dL Glucose 108 H (74-99) mg/dL ALT 124 H (9-52) U/L Alkaline Phosphatase 177 H (38-126) U/L Albumin 3.2 L (3.5-5.0) g/dL Assessment and Plan Assessment: Acute gallstone pancreatitis Elevated blood pressure/hypertension new finding Elevated liver enzymes 5 day postop cholecystectomy Morbid obesity Hard of hearing Plan: Gentle rehydration Pain management May need to start antihypertensive agents in blood pressure consistently elevated GI consultation last surgical consultation DVT prophylaxis with early early ambulation and pneumatic compression device patient can be discharged home from medical standpoint with follow-up with primary service as recommended Further recommendations pending plan of care as per clinical response of the patient Time with Patient: Greater than 30
== END 2018-07-05 11:08 | disposition home or self-care (01) | DRG 438 ==
LOC: EC 15:59 → 4MS4W 19:48
PROVIDERS: ADMIT Surgery; ATTEND Surgery
DX: K85.10 Biliary acute pancreatitis without necrosis or infection (principal); K83.1 Obstruction of bile duct; K91.86 Retained cholelithiasis following cholecystectomy; E66.01 Morbid (severe) obesity due to excess calories; H91.90 Unspecified hearing loss, unspecified ear; I10 Essential (primary) hypertension; Z82.49 Family history of ischemic heart disease and other diseases of the circulatory system; Z90.49 Acquired absence of other specified parts of digestive tract; Z68.38 Body mass index [BMI] 38.0-38.9, adult; Z83.79 Family history of other diseases of the digestive system; Z79.2 Long term (current) use of antibiotics
CPT/HCPCS: 36415; 74177; 74181; 78226; 80053; 81001; 82150; 83690; 83735; 84100; 84484; 85025; 93005; 96361; 96374; 96375; 99285

== ENCOUNTER → 2018-09-03 | Outpatient (CLI) | payer BC ==
--- NOTE | 2018-09-04 10:39 | MM ---
Reason for exam: screening (asymptomatic). Last mammogram was performed 4 years and 11 months ago. History: Patient is postmenopausal and is nulliparous. Family history of breast cancer in sister at age 42. Took hormonal contraceptives for 2 years. Physical Findings: A clinical breast exam by your physician is recommended on an annual basis and results should be correlated with mammographic findings. MG 3D Screening Mammo W/Cad Bilateral CC and MLO view(s) were taken. Prior study comparison: October 10, 2013, bilateral digital screening mammo w/CAD. October 11, 2011, bilateral digital screening mammo w/CAD. The breast tissue is heterogeneously dense. This may lower the sensitivity of mammography. No significant changes when compared with prior studies. ASSESSMENT: Benign, BI-RAD 2 RECOMMENDATION: Routine screening mammogram of both breasts in 1 year.
== END ==
LOC: RADMAMWWP 07:03
PROVIDERS: ATTEND Family Medicine
DX: Z12.31 Encounter for screening mammogram for malignant neoplasm of breast (principal); Z80.3 Family history of malignant neoplasm of breast
CPT/HCPCS: 77063; 77067

== ENCOUNTER → 2020-04-08 | Outpatient (CLI) | payer BC ==
--- NOTE | 2020-04-09 11:08 | MM ---
Reason for exam: screening (asymptomatic). Last mammogram was performed 1 year and 7 months ago. History: Patient is postmenopausal and is nulliparous. Family history of breast cancer in sister at age 42. Took hormonal contraceptives for 2 years. Physical Findings: A clinical breast exam by your physician is recommended on an annual basis and results should be correlated with mammographic findings. MG 3D Screening Mammo W/Cad Bilateral CC and MLO view(s) were taken. Prior study comparison: September 03, 2018, bilateral MG 3d screening mammo w/cad. October 10, 2013, bilateral digital screening mammo w/CAD. The breast tissue is heterogeneously dense. This may lower the sensitivity of mammography. There is no discrete abnormality. No significant changes when compared with prior studies. ASSESSMENT: Negative, BI-RAD 1 RECOMMENDATION: Routine screening mammogram of both breasts in 1 year.
== END | disposition home or self-care (01) ==
LOC: RADMAMWWP 07:34
PROVIDERS: ATTEND Family Medicine
DX: Z12.31 Encounter for screening mammogram for malignant neoplasm of breast (principal)
CPT/HCPCS: 77063; 77067

== ENCOUNTER → 2024-01-24 | Outpatient (CLI) | payer BC ==
--- NOTE | 2024-01-24 23:53 | BD ---
EXAMINATION TYPE: Axial Bone Density DATE OF EXAM: 01/24/2024 CLINICAL HISTORY: 63 years old Female. ICD-10 CODE: Z78.0 post-menopausal w/o hrt Height: 68 Weight: 259.8 FRAX RISK QUESTIONS: Alcohol (3 or more units per day): no Family History (Parent hip fracture): no Glucocorticoids (More than 3mos): no (Ex: prednisone, prednisolone, methylprednisolone, dexamethasone, and hydrocortisone). History of Fracture in Adulthood: no Secondary Osteoporosis: 1. Type 1 Diabetes: no 2. Hyperthyroidism: no 3. Menopause before 45: yes 4. Malnutrition: no 5. Chronic liver disease: no Rheumatoid Arthritis: no Current Tobacco Use: no RISK FACTORS HISTORY OF: Surgery to Spine/Hip(right/left)/Wrist (right/left): no EXAM MEASUREMENTS: Bone mineral densitometry was performed using the [employer]ollidon System. Bone mineral density as measured about the Lumbar spine is: ----- L1-L4(G/cm2): 1.312 T Score Values are as follows: ----- L1: -0.2 ----- L2: 0.9 ----- L3: 1.3 ----- L4: 1.9 ----- L1-L4: 1.1 Z Score Values are as follows: ----- L1: 0.1 ----- L2: 1.3 ----- L3: 1.6 ----- L4: 2.3 ----- L1-L4: 1.5 Bone mineral density : baseline Bone mineral density about the R hip (g/cm2): 1.047 Bone mineral density about the L hip (g/cm2): 1.025 T Score values are as follows: -----R Neck: -0.7 -----L Neck: -0.5 -----R Total: 0.3 -----L Total: 0.1 Z Score values are as follows: -----R Neck: 0.0 -----L Neck: 0.2 -----R Total: 0.6 -----L Total: 0.5 Bone mineral density : baseline FRAX%s: The graph provided illustrates a 6.4 % chance for a major osteoporotic fx and a 0.3% chance f or the hips probability for fx in 10 years time. IMPRESSION: Normal (Values between +1 and -1 indicate normal bone mass). Consider repeating this study in 5 year s or sooner if there is some new clinical indication. NOTE: T-SCORE=SD OF THE YOUNG ADULT MEAN.
--- NOTE | 2024-01-27 13:29 | MM ---
Reason for Exam: Screening (asymptomatic). Last mammogram was performed 3 year(s) and 9 month(s) ago. Patient History: Menarche at age 11. Patient has no children. Postmenopausal. Patient used Hormonal Contraceptives for 2 years. Sister had breast cancer, age 42. Risk Values: Jacki 5 year model risk: 3.2%. NCI Lifetime model risk: 12.4%. Prior Study Comparison: 10/10/2013 Bilateral Screening Mammogram, [facility]. 09/03/2018 Bilateral Screening Mammogram, [facility]. 04/08/2020 Bilateral Screening Mammogram, [facility]. Tissue Density: There are scattered areas of fibroglandular density. Findings: Analyzed By CAD. The pattern is symmetrical. Pattern is stable. No significant interval change. No suspicious groups of microcalcifications, spiculated or lobular masses, architectural distortion or other secondary signs of malignancy are mammographically apparent. Overall Assessment: Benign, BI-RAD 2 Management: Screening Mammogram of both breasts in 1 year. A negative mammogram report should not preclude additional follow up of suspicious palpable abnormalities. Patient should continue monthly self breast exam. A clinical breast exam by your physician is recommended on an annual basis and results should be correlated with mammographic findings. Note on Jacki scores and lifetime risk: 1. A Ajcki score greater than 3% is considered moderate risk. If this is the case, consider specialist referral to assess eligibility for a risk reducing agent. 2. If overall lifetime risk for the development of breast cancer is 20% or higher, the patient may qualify for future screening with alternating mammogram and breast MRI. Electronically signed and approved by: Ramana Tobar D.O. Radiologis
== END | disposition home or self-care (01) ==
LOC: RADMAMWWP 15:28
PROVIDERS: ATTEND Family Medicine
DX: Z12.31 Encounter for screening mammogram for malignant neoplasm of breast (principal); R92.323 Mammographic fibroglandular density, bilateral breasts; Z78.0 Asymptomatic menopausal state; Z80.3 Family history of malignant neoplasm of breast
CPT/HCPCS: 77063; 77067; 77080